=== PATIENT | female | born 1990 | race Caucasian/White ===

== ENCOUNTER 2022-06-24 09:43 | Emergency (ER) | payer OTHER, SELFPAY ==
[2022-06-24 09:47] VITALS: BP 124/73; PULSE 91; RESP 14; TEMP 36.9; O2SAT 100
[2022-06-24 10:02] LABS: Basophils Absolute Auto 0.1 K/mm3 (0.0-0.1); Basophils Percent Auto 0.4 % (0.2-1.2); Eosinophils Absolute Auto 0.1 K/mm3 (0-0.3); Hematocrit 39.6 % (37.0-47.0); Hemoglobin 13.3 g/dL (12.0-15.0); Immature Granulocyte Absolute 0.07 K/mm3 (0.00-0.031); Immature Granulocyte Percent A 0.6 % (0-0.5); Lymphocytes Absolute Auto 2.15 K/mm3 (0.9-3.2); Lymphocytes Percent Auto 17.8 % (18.3-44.2); Mean Corpuscular HGB Conc 33.6 g/dl (32-36); Mean Corpuscular Hemoglobin 29.6 pg (26-34); Monocytes Absolute Auto 0.8 K/mm3 (0.1-0.6); Monocytes Percent Auto 6.5 % (2.6-8.5); Neutrophils Absolute Auto 8.9 K/mm3 (1.3-6.7); Neutrophils Percent Auto 73.7 % (45.5-73.1); Platelet Count Result 355 k/mm3 (150-375); Red Cell Distribution Width 13.3 % (11.5-14.5); White Blood Count 12.1 K/mm3 (4.5-10.0)
[2022-06-24 10:17] LABS: Alanine Aminotransferase 33 U/L (6-35); Albumin Level 4.2 g/dL (3.5-5.1); Alkaline Phosphatase 80 U/L (38-126); Anion Gap 11 mmol/L (8-16); Aspartate Amino Transferase 30 U/L (14-36); Bilirubin,Total 0.3 mg/dL (0.2-1.3); Blood Urea Nitrogen 5 mg/dL (7-17); Calcium 8.9 mg/dL (8.4-10.2); Carbon Dioxide 21 mmol/L (22-30); Chloride 103 mmol/L (98-107); Estimated CRCL calculation 158 ml/min; Estimated Glomerular Filt Rate > 60; Glucose 90 mg/dL (65-110); Lipase 35 U/L (23-300); Potassium 4.1 mmol/L (3.4-5.0); Sodium 135 mmol/L (137-145)
[2022-06-24 10:42] LABS: Appearance Urine Cloudy (Clear); Bilirubin Urine Negative (Negative); Blood Urine Negative (Negative); Color Urine Yellow (Yellow); Glucose Urine UA Negative (Negative); Ketones Urine Negative (Negative); Leukocyte Esterase Ur Negative LEU/UL (Negative); Nitrate Urine Negative (Negative); Protein Urine Negative (Negative); Urobilinogen Urine 0.2 mg/dL (<2.0); pH Urine 6.5 (5.0-9.0)
[2022-06-24 10:54] LABS: Add Urine Microscopic? YES
[2022-06-24 10:55] LABS: Squamous Epithelial Cell Urine Many /hpf (Few)
[2022-06-24 11:22] VITALS: BP 133/78; PULSE 76
[2022-06-24 11:23] VITALS: BP 116/66; PULSE 94
[2022-06-24 11:24] VITALS: BP 135/85; PULSE 93
[2022-06-24] MEDS: LACTATED RINGERS 1,000 ML 1000 ML IV CONT (11:48)
[2022-06-24 12:53] VITALS: BP 105/57; PULSE 68; O2SAT 97
--- NOTE | 2022-06-24 17:19 | ED.NAVMDI ---
HPI - Nausea/Vomiting/Diarrhea General Chief complaint: Nausea/Vomiting/Diarrhea Stated complaint: cough, vomiting blood, 11 weeks Time Seen by Provider: 06/24/22 11:19 History of Present Illness HPI Narrative: Pt is a 31 y/o female, , 11 weeks , presents to ED via POV with NV with , endorsed as morning sickness, with recent hx of two separate episodes of BRB in her vomit, once two days ago with a small clot reported, a second time with bright red streaking. She has no hematochezia or melena. She denies associated abdominal pain, fevers, chills, CP, SOB, diarrhea, constipation or urinary symptoms. She contacted her OBGYN and was instructed to come to the ED for evaluation. She is not dizzy and she denies syncope or vaginal discharge/bleeding. She is scheduled to see her OBGYN next week. She is not currently prescribed anti-emetics for N/V. She is eating and drinking between episodes of vomiting and tolerating well. Related Data Allergies Allergy/AdvReac Type Severity Reaction Status Date / Time No Known Allergies Allergy Unverified 04/01/19 22:51 Review of Systems Review of Systems: refer] to HPI Exam Const: General: healthy appearing, no acute distress and alert Orientation/consciousness: patient oriented x3 Limitations: no limitations HENMT: Head: normal to inspection Face/Nose/Sinus: Normal external nose present and Normal nares present Face and sinus: normal facial exam and sinuses nontender Mouth: Yes Normal oral and palatal mucosa present Teeth and gingiva: dentition normal Throat: posterior oropharynx normal and uvula midline Eyes: Conjunctivae: conjunctivae normal Cornea: corneas normal Pupils: Equal, round and reactive pupils present EOM: EOMs intact bilaterally Neck: Neck: normal visual inspection, no lymphadenopathy and no meningeal signs Chest: Chest palpation & inspection: normal inspection of the chest Resp: Effort & Inspection: normal respiratory effort Cardio: Rate: regular rate Rhythm: regular rhythm GI: GI Palp: Yes Soft to palpation, No Tenderness to palpation present (GI), No Guarding due to palpation present (GI), No Rigid due to palpation, No Hernia present, No Palpable mass present and No Rebound tenderness present Auscultation: normal bowel sounds Back/Spine/Pelvis: Back: no CVA tenderness Skin: General skin exam: normal color Neuro: General: patient oriented x3, moves all extremities, no meningeal signs and no focal motor deficits Cranial nerves: Yes Nystagmus not present Speech: normal speech Extrem: General: normal to inspection, no clubbing, cyanosis or edema and no pedal edema Other: no calf TTP, no palpable cord Psych: Mental Status: mental status grossly normal Course Course Emergency Course: labs, IVF, antiemetics should NV return Vital Signs Vital signs: Vital Signs Temperature 36.9 C 06/24/22 09:47 Pulse Rate 91 06/24/22 09:47 Respiratory Rate 14 06/24/22 09:47 Blood Pressure 124/73 06/24/22 09:47 Pulse Oximetry 100 06/24/22 09:47 Oxygen Delivery Room Air 06/24/22 09:47 Temperature 36.9 C 06/24/22 09:47 Pulse Rate 68 06/24/22 12:53 Respiratory Rate 14 06/24/22 09:47 Blood Pressure 105/57 L 06/24/22 12:53 Pulse Oximetry 97 06/24/22 12:53 Oxygen Delivery Room Air 06/24/22 09:47 MDM - Nausea/Vomiting/Diarrhea MDM Narrative Medical decision making narrative: Pt's nausea has remained resolved. H/H is stable. Suspect claribel de souza tear with vomiting. Will treat with antiemetics, advising patient to take only if necessary until after the 12 week gestational marker. She agrees with POC. She will FU with her OBGYN a planned. Differential Diagnosis Differential diagnosis: Likely other (claribel de souza tear, GERD, gastritis, hyperemesis grav) Lab Data Lab results narrative: marginally increased WBC, no shift, likely secondary to , labs otherwise unremarkable. Result diagrams:
== END 2022-06-24 13:55 | disposition home or self-care (01) ==
PROVIDERS: Emergency Medicine; Emergency Provider Nurse Practitioner Family; PCP Nurse Practitioner Family
DX: O21.9 Vomiting of pregnancy, unspecified (principal); K92.0 Hematemesis; Z3A.11 11 weeks gestation of pregnancy
CPT/HCPCS: 36415; 80053; 81001; 81025; 83690; 85025; 96360; 96361; 99283; J7120

== ENCOUNTER 2022-10-08 06:00 | Observation (INO) | payer MEDICAID, SELFPAY ==
--- NOTE | 2022-10-08 06:00 | OBADM ---
This patient, Clary Price, admitted to the OB room OB Post 115 for observation. Patient/family oriented to hospital policies and general routines including ID bracelet, bed and alarms, visiting hours, pain management, procedures, bathroom and other care routines, personal items, smoking policy, room service/diet, and visiting hours. Patient/Family are encouraged to report perceived risks to care and to ask questions if they do not understand what they are told or what they should do.
--- NOTE | 2022-10-08 06:20 | PC.NURSE ---
pt has complaints of right sided rib pain. Pt states she had COVID 3 weeks ago and has a residual cough. Pt stated the pain has been going on for 1 week now but was woke up in her sleep with a pop in her right rib. Pt states she has been taking cough drops and has had Tylenol this AM but does not know how much.
[2022-10-08 06:28] VITALS: BP 141/76; PULSE 93
[2022-10-08 06:29] VITALS: TEMP 36.5
[2022-10-08 06:51] VITALS: BMI 39.3
[2022-10-08 06:56] LABS: Hematocrit 33.1 % (37.0-47.0); Hemoglobin 10.7 g/dL (12.0-15.0); Mean Corpuscular HGB Conc 32.3 g/dl (32-36); Mean Corpuscular Hemoglobin 28.4 pg (26-34); Mean Corpuscular Volume 87.8 fl (80-100); Mean Platelet Volume 10.2 fl (7.4-10.4); Platelet Count Result 337 k/mm3 (150-375); Red Blood Count 3.77 M/mm3 (4.2-5.4); Red Cell Distribution Width 13.3 % (11.5-14.5)
[2022-10-08] MEDS: CYCLOBENZAPRINE HCL 10 MG TABLET PO (06:57)
[2022-10-08 07:13] LABS: Alanine Aminotransferase 18 U/L (6-35); Albumin Level 3.6 g/dL (3.5-5.1); Alkaline Phosphatase 144 U/L (38-126); Anion Gap 5 mmol/L (8-16); Aspartate Amino Transferase 19 U/L (14-36); Bilirubin,Total 0.3 mg/dL (0.2-1.3); Blood Urea Nitrogen 5 mg/dL (7-17); Calcium 8.3 mg/dL (8.4-10.2); Carbon Dioxide 24 mmol/L (22-30); Chloride 104 mmol/L (98-107); Estimated CRCL calculation 160 ml/min; Estimated Glomerular Filt Rate > 60; Glucose 94 mg/dL (65-110); Potassium 3.8 mmol/L (3.4-5.0); Sodium 133 mmol/L (137-145)
[2022-10-08] MEDS: HYDROcodone/acetaminophen (*CRX) 5-325 MG TABLET 1 TAB PO (08:18)
[2022-10-08 08:53] VITALS: BP 113/62; PULSE 81
--- NOTE | 2022-10-08 09:28 | PC.NURSE ---
pt feeling better and would like to go home and rest. Janna Santiago on the unit and updated. Discharge orders received.
--- NOTE | 2022-10-11 17:01 | P.PNOB_ITS ---
OB - Triage/Final Diagnosis Visit Information Date of evaluation: 10/08/22 Reason for evaluation: other (RUQ pain) Comments/Additional reasons for admission: I have assessed the risk for this patient, Clary Che Allen, and determined that she would benefit from observation care. Evaluation Laboratory results: Laboratory Tests 10/08/22 10/08/22 06:48 06:48 WBC 14.0 H RBC 3.77 L Hgb 10.7 L Hct 33.1 L MCV 87.8 MCH 28.4 MCHC 32.3 RDW 13.3 Plt Count 337 MPV 10.2 Sodium 133 L Potassium 3.8 Chloride 104 Carbon Dioxide 24 Anion Gap 5 L BUN 5 L Creatinine 0.50 L Estim Creat Clear Calc 160 Estimated GFR > 60 Glucose 94 Calcium 8.3 L Total Bilirubin 0.3 AST 19 ALT 18 Alkaline Phosphatase 144 H Total Protein 7.0 Albumin 3.6
== END 2022-10-08 09:48 | disposition home or self-care (01) ==
PROVIDERS: Advanced Practice Midwife; Admitting Provider Obstetrics & Gynecology; PCP Nurse Practitioner Family; Visit Provider Obstetrics & Gynecology
DX: O26.899 Other specified pregnancy related conditions, unspecified trimester (principal); R10.11 Right upper quadrant pain
CPT/HCPCS: 36415; 80053; 85027; A9270; G0378; G0379

== ENCOUNTER 2022-11-29 12:09 | Outpatient (CLI) | payer BC, MEDICAID, SELFPAY ==
[2022-11-29 12:31] VITALS: BP 97/62; PULSE 95
[2022-11-29 12:45] VITALS: BP 101/63; PULSE 89
[2022-11-29 12:59] LABS: Basophils Absolute Auto 0.1 K/mm3 (0.0-0.1); Basophils Percent Auto 0.4 % (0.2-1.2); Eosinophils Absolute Auto 0.4 K/mm3 (0-0.3); Eosinophils Percent Auto 2.1 % (0-4.4); Hematocrit 31.8 % (37.0-47.0); Hemoglobin 10.4 g/dL (12.0-15.0); Immature Granulocyte Absolute 0.11 K/mm3 (0.00-0.031); Immature Granulocyte Percent A 0.7 % (0-0.5); Lymphocytes Absolute Auto 2.23 K/mm3 (0.9-3.2); Lymphocytes Percent Auto 13.7 % (18.3-44.2); Mean Corpuscular HGB Conc 32.7 g/dl (32-36); Mean Corpuscular Hemoglobin 26.7 pg (26-34); Mean Corpuscular Volume 81.5 fl (80-100); Mean Platelet Volume 10.6 fl (7.4-10.4); Monocytes Absolute Auto 1.4 K/mm3 (0.1-0.6); Monocytes Percent Auto 8.6 % (2.6-8.5); Neutrophils Absolute Auto 12.2 K/mm3 (1.3-6.7); Neutrophils Percent Auto 74.5 % (45.5-73.1); Platelet Count Result 338 k/mm3 (150-375); Red Cell Distribution Width 13.7 % (11.5-14.5); White Blood Count 16.3 K/mm3 (4.5-10.0)
[2022-11-29 13:00] VITALS: BP 100/63; PULSE 94
[2022-11-29 13:09] LABS: Alanine Aminotransferase 13 U/L (6-35); Albumin Level 3.4 g/dL (3.5-5.1); Alkaline Phosphatase 210 U/L (38-126); Anion Gap 5 mmol/L (8-16); Appearance Urine Cloudy (Clear); Aspartate Amino Transferase 16 U/L (14-36); Bacteria Urine 3+ /hpf; Bilirubin Urine Negative (Negative); Bilirubin,Total 0.4 mg/dL (0.2-1.3); Blood Urea Nitrogen 4 mg/dL (7-17); Blood Urine Negative (Negative); Calcium 8.8 mg/dL (8.4-10.2); Carbon Dioxide 23 mmol/L (22-30); Chloride 104 mmol/L (98-107); Color Urine Yellow (Yellow); Estimated Glomerular Filt Rate > 60; Glucose 84 mg/dL (65-110); Glucose Urine UA Negative (Negative); Ketones Urine Negative (Negative); Leukocyte Esterase Ur 3+ LEU/UL (NEGATIVE); Nitrate Urine Negative (Negative); Non Pathogenic Casts 0-2; Protein Urine Negative (Negative); RBC Urine 0-2 /hpf (0-2); Sodium 132 mmol/L (137-145); Specific Grav Ur 1.012 (1.001-1.035); Squamous Epithelial Cell Urine Moderate /hpf (Few); Uric Acid 5.7 mg/dL (2.5-7.5); WBC Urine 21-50 /hpf (0-3)
[2022-11-29 13:15] VITALS: BP 98/68; PULSE 85
[2022-11-29 13:21] LABS: Add Urine Microscopic? YES
[2022-11-29] MEDS: ACETAMINOPHEN 500 MG TABLET 1000 MG PO (13:21)
[2022-11-29 14:20] LABS: Total Protein Urine Random 12 mg/dL; Ur Ttl Prot Creatinine Ratio 0.11 mg/mg (0-0.20)
[2022-11-29 14:48] VITALS: BP 97/62; PULSE 95
--- NOTE | 2022-11-29 14:48 | PC.NURSE ---
Malick Ulrich notified of labs and BP's ok to dc home.
== END 2022-11-29 14:48 | disposition home or self-care (01) ==
LOC: ANHOBOP 12:15 → ANHOBPP 12:17
PROVIDERS: Advanced Practice Midwife; PCP Nurse Practitioner Family; Visit Provider Obstetrics & Gynecology
DX: O13.9 Gestational [pregnancy-induced] hypertension without significant proteinuria, unspecified trimester (principal); Z3A.00 Weeks of gestation of pregnancy not specified
CPT/HCPCS: 36415; 59025; 80053; 81001; 82570; 84156; 84550; 85025; 87086; 87088; 99199; A9270

== ENCOUNTER 2022-12-13 11:59 | Emergency (ER) | payer BC, MEDICAID, SELFPAY ==
[2022-12-13 12:00] VITALS: BP 132/77; PULSE 93; RESP 16; TEMP 36.9; O2SAT 97
--- NOTE | 2022-12-13 12:21 | ECG_ITS ---
Measurements Intervals [place] Rate: 100 P: 18 MA: 165 QRS: -27 QRSD: 90 T: 16 QT: 325 QTc: 419 Interpretive Statements SINUS TACHYCARDIA BORDERLINE LEFT AXIS DEVIATION [QRS AXIS < -20] ABNORMAL RHYTHM ECG NO PREVIOUS ECG AVAILABLE FOR COMPARISON Electronically Signed On 12-13-2022 14:43:21 CDT by Chris Billy M.D.
[2022-12-13 12:23] VITALS: PULSE 100
--- NOTE | 2022-12-13 12:34 | ED.GENADULT ---
HPI - General Adult General Chief complaint: Chest Pain Stated complaint: epigastric pain Time Seen by Provider: 12/13/22 12:08 History of Present Illness HPI narrative: 32 yo female at 3 wga presents for reproducible R sided cp x 3 months. She has been told it's musculoskeletal by her ob provider. NO sob, dyspnea. Cholecystectomy prior to . Related Data Allergies Allergy/AdvReac Type Severity Reaction Status Date / Time No Known Allergies Allergy Verified 12/13/22 12:22 Review of Systems Review of Systems: CONSTITUTIONAL: Denies fever, chills, or sweats. EYES: Denies visual changes, redness, or discharge. ENT: Denies rhinorrhea, congestion, sore throat, or otalgia. CARDIOVASCULAR: Denies chest pain, palpitations, or edema. RESPIRATORY: Denies cough or dyspnea. GASTROINTESTINAL: Denies abdominal pain, nausea, vomiting, or diarrhea. GENITOURINARY: Denies dysuria or hematuria. SKIN: Denies rash or itching. MUSCULOSKELETAL: Denies back pain, joint pain, or myalgia. NEUROLOGIC: Denies headache, numbness, or weakness. PSYCHIATRIC: Denies anxiety or depression. Exam Narrative: GENERAL: Well-appearing, well-nourished, and in no acute distress. HEAD: Normocephalic, atraumatic. EYES: PERRLA and EOMI. ENT: Nares clear, no rhinorrhea or epistaxis. Mucous membranes moist. NECK: Supple. CHEST: Clear to auscultation. No respiratory distress. reproducible tenderness in both ant/posterior portions of L rib 6 7 HEART: Regular rate and rhythm. No murmur heard. Normal peripheral pulses. ABDOMEN: Soft, nontender, nondistended, normal active bowel sounds. EXTREMITIES: Normal range of motion. No edema. SKIN: Warm, dry, no rash. NEURO: No focal deficits. Alert and oriented x3. PSYCH: Normal mood and affect. Course Vital Signs Vital signs: Vital Signs Temperature 98.5 F 12/13/22 12:00 Pulse Rate 93 12/13/22 12:00 Respiratory Rate 16 12/13/22 12:00 Blood Pressure 132/77 12/13/22 12:00 Pulse Oximetry 97 12/13/22 12:00 Oxygen Delivery Room Air 12/13/22 12:00 Temperature 98.5 F 12/13/22 12:00 Pulse Rate 83 12/13/22 13:46 Respiratory Rate 21 H 12/13/22 13:46 Blood Pressure 107/77 12/13/22 13:16 Pulse Oximetry 98 12/13/22 13:16 Oxygen Delivery Room Air 12/13/22 12:00 Medical Decision Making MDM Narrative Medical decision making narrative: 32 yo female presents with what seems to be chronic musculoskeletal pain in ribs on R side no gb doubt PE, wells is low risk tylenol and ivf bolus IV fluid bolus has infused patient's heart rate has improved and mucous membranes are moist. I do not suspect PE or cardiac cause of the symptoms and this does present like a musculoskeletal chest pain. Return precautions given. Vital Signs Vital Signs: Vital Signs Temperature 98.5 F 12/13/22 12:00 Pulse Rate 93 12/13/22 12:00 Respiratory Rate 16 12/13/22 12:00 Blood Pressure 132/77 12/13/22 12:00 Pulse Oximetry 97 12/13/22 12:00 Oxygen Delivery Room Air 12/13/22 12:00 Temperature 98.5 F 12/13/22 12:00 Pulse Rate 83 12/13/22 13:46 Respiratory Rate 21 H 12/13/22 13:46 Blood Pressure 107/77 12/13/22 13:16 Pulse Oximetry 98 12/13/22 13:16 Oxygen Delivery Room Air 12/13/22 12:00 Discharge Plan Discharge Clinical Impression: Atypical chest pain, Costalchondritis Patient Disposition: Home, Self-Care Condition: Stable Instructions: Antibiotic Form Additional Instructions: Please avoid any activities which may cause pain in your chest. Please follow-up with a chiropractor who may be able to improve some of the musculoskeletal symptoms that you are experiencing. If your chest pain worsens please return to the ER for further testing and treatment. Prescriptions: No Action cyclobenzaprine 10 mg Tablet 10 mg PO Q8H PRN (Reason: Muscle Spasm) Qty: 10 0RF Follow-up/Referrals: Faye,Claudia Sosa APRN [Advanced Practice Nurse
[2022-12-13] MEDS: LACTATED RINGERS 1,000 ML 999 ML IV CONT (12:43)
[2022-12-13 12:56] VITALS: PULSE 89; RESP 27; O2SAT 97
[2022-12-13 13:16] VITALS: BP 107/77; PULSE 87; RESP 19; O2SAT 98
[2022-12-13 13:46] VITALS: PULSE 83; RESP 21
== END 2022-12-13 14:49 | disposition home or self-care (01) ==
PROVIDERS: Emergency Provider Emergency Medicine; PCP Advanced Practice Midwife
DX: M94.0 Chondrocostal junction syndrome [Tietze] (principal)
CPT/HCPCS: 93005; 96365; 99284; J0131; J7120

== ENCOUNTER 2022-12-29 10:10 | Inpatient (IN) | payer BC, SELFPAY ==
[2022-12-29] VITALS (205 sets, daily range): BP systolic 75–142; BP diastolic 34–107; PULSE 30–255; TEMP 36.1–37.2; O2SAT 81–100; BMI 41.4
[2022-12-29] MEDS: AMPICILLIN 2 GM/NS 100 ML 2 GM/100 ML BAG IVPB (11:09)
[2022-12-29] MEDS: LACTATED RINGERS 1,000 ML 125 ML IV CONT ×2 (11:09→13:16)
[2022-12-29] MEDS: OXYTOCIN 30 UNITS/NS 500 ML 30 UNITS/500 ML BAG 6 UNITS IV CONT (11:14)
[2022-12-29 11:27] LABS: Basophils Absolute Auto 0.1 K/mm3 (0.0-0.1); Basophils Percent Auto 0.5 % (0.2-1.2); Eosinophils Absolute Auto 0.3 K/mm3 (0-0.3); Eosinophils Percent Auto 3.3 % (0-4.4); Hematocrit 33.5 % (37.0-47.0); Hemoglobin 10.7 g/dL (12.0-15.0); Immature Granulocyte Absolute 0.04 K/mm3 (0.00-0.031); Immature Granulocyte Percent A 0.4 % (0-0.5); Lymphocytes Absolute Auto 2.04 K/mm3 (0.9-3.2); Lymphocytes Percent Auto 21.6 % (18.3-44.2); Mean Corpuscular HGB Conc 31.9 g/dl (32-36); Mean Corpuscular Hemoglobin 26.1 pg (26-34); Mean Corpuscular Volume 81.7 fl (80-100); Mean Platelet Volume 11.3 fl (7.4-10.4); Monocytes Absolute Auto 0.7 K/mm3 (0.1-0.6); Monocytes Percent Auto 7.2 % (2.6-8.5); Neutrophils Absolute Auto 6.3 K/mm3 (1.3-6.7); Platelet Count Result 292 k/mm3 (150-375); Red Cell Distribution Width 14.4 % (11.5-14.5); White Blood Count 9.4 K/mm3 (4.5-10.0)
[2022-12-29] MEDS: fentaNYL CITRATE INJ (*CRX) 100 MCG/2 ML VIAL 50 MCG IV PUSH (12:26)
[2022-12-29 12:41] LABS: Rapid Plasma Reagin Non-Reactive (NonReactive)
--- NOTE | 2022-12-29 13:20 | LDADM ---
This patient, Clary Price, was admitted to Labor/Delivery/Recovery 104 on 12/29/22 at 10:10. Plans for labor, pain management and were discussed with patient. Patient/family oriented to hospital policies and general routines including ID bracelet, bed and alarms, visiting hours, pain management, procedures, bathroom and other care routines, personal items, smoking policy, room service/diet and guest tray routines, infant security routines, and visiting hours. Patient/Family are encouraged to report perceived risks to care and to ask questions if they do not understand what they are told or what they should do. See OBIX for further documentation.
--- NOTE | 2022-12-29 14:05 | P.PNAN_ITS ---
Anes - Eval Pre Procedure Procedure: Labor Epidural Date/Time: 12/29/22 14:05 Surgeon: Jonathan Preop Diagnosis: Pain during labor Pre Op Diagnosis: leaking Patient Data Age: 32 Gender: F Height: 1.65 m Weight: 113 kg Last Vital Signs Temp 36.8 C 12/29/22 11:30 Pulse 67 12/29/22 14:03 BP 110/58 L 12/29/22 14:03 Pulse Ox 96 12/29/22 14:02 Allergies Allergy/AdvReac Type Severity Reaction Status Date / Time No Known Allergies Allergy Verified 12/13/22 12:22 Laboratory Tests 12/29/22 11:02 WBC 9.4 K/mm3 (4.5-10.0) RBC 4.10 L M/mm3 (4.2-5.4) Hgb 10.7 L g/dL (12.0-15.0) Hct 33.5 L % (37.0-47.0) MCV 81.7 fl (80-100) MCH 26.1 pg (26-34) MCHC 31.9 L g/dl (32-36) RDW 14.4 % (11.5-14.5) Plt Count 292 k/mm3 (150-375) MPV 11.3 H fl (7.4-10.4) Immature Gran % (Auto) 0.4 % (0-0.5) Neut % (Auto) 67.0 % (45.5-73.1) Lymph % (Auto) 21.6 % (18.3-44.2) [place] % (Auto) 7.2 % (2.6-8.5) Eos % (Auto) 3.3 % (0-4.4) Baso % (Auto) 0.5 % (0.2-1.2) Lymph # (Auto) 2.04 K/mm3 (0.9-3.2) [place] # (Auto) 0.7 H K/mm3 (0.1-0.6) Eos # (Auto) 0.3 K/mm3 (0-0.3) Baso # (Auto) 0.1 K/mm3 (0.0-0.1) Abs Immat Gran (auto) 0.04 H K/mm3 (0.00-0.031) Absolute Neuts (auto) 6.3 K/mm3 (1.3-6.7) Absolute Nucleated RBC 0.0 K/mm3 (0.0-0.012) Nucleated RBC % 0.0 % (0.0-0.2) RPR Non-reactive (NonReactive) Blood Type O Positive Antibody Screen Negative Patient hx anesthesia problems: none Family hx anesthesia problems: none Results Review: All pre-operative results and documents have been reviewed as part of the pre-op erative evaluation. [facility] Social History Social History Smoking packs per day: 1 Smoking cigarettes per day: 20.0 Years smoked: 15 Smoking pack-years: 15.00 Smoking status: Current every day smoker Tobacco type: cigarettes Second hand tobacco smoke exposure: Yes Substance use: never Lack of Transportation: No Lack of Food: Never True Current Housing: I Have Housing Concerned About Future Housing: No Difficulty Paying Gas/Electric Bills: No Difficulty Paying for Meds: No Currently Unemployed: No Education: High School Diploma/GED Difficulty w/ Childcare or Family Care: No Spiritual care concerns: No Exam Day of Procedure 12/29/22 14:05 Patient weight: obese Neurological: alert and oriented
[2022-12-29] MEDS: AMPICILLIN 1 GM/NS 50 ML 1 GM/50 ML BAG IVPB ×2 (15:07→19:00)
[2022-12-29] MEDS: ONDANSETRON INJ 4 MG/2 ML VIAL IV PUSH ×3 (19:20→23:28)
[2022-12-29] MEDS: miSOPROStol 200 MCG TABLET 1000 MCG RECTAL (22:38)
[2022-12-29] MEDS: METHYLERGONOVINE MALEATE 0.2 MG/ML VIAL IM (22:40)
[2022-12-29] MEDS: CARBOPROST TROMETHAMINE 250 MCG/ML AMPUL IM (22:43)
[2022-12-29] MEDS: OXYTOCIN 30 UNITS/NS 500 ML 30 UNITS/500 ML BAG 125 UNITS IV CONT (22:45)
[2022-12-29] MEDS: TRANEXAMIC ACID 1,000 MG in SODIUM CHLORIDE 0.9% IV 50 ML 360 MG IVPB (22:49)
[2022-12-29 23:09] LABS: Basophils Percent Auto 0.3 % (0.2-1.2); Eosinophils Absolute Auto 0.1 K/mm3 (0-0.3); Eosinophils Percent Auto 0.7 % (0-4.4); Hematocrit 22.7 % (37.0-47.0); Immature Granulocyte Absolute 0.07 K/mm3 (0.00-0.031); Immature Granulocyte Percent A 0.5 % (0-0.5); Lymphocytes Absolute Auto 1.78 K/mm3 (0.9-3.2); Lymphocytes Percent Auto 11.7 % (18.3-44.2); Mean Corpuscular HGB Conc 30.8 g/dl (32-36); Mean Corpuscular Hemoglobin 26.1 pg (26-34); Mean Corpuscular Volume 84.7 fl (80-100); Mean Platelet Volume 11.2 fl (7.4-10.4); Monocytes Absolute Auto 1.2 K/mm3 (0.1-0.6); Monocytes Percent Auto 8.1 % (2.6-8.5); Neutrophils Percent Auto 78.7 % (45.5-73.1); Platelet Count Result 177 k/mm3 (150-375); Red Blood Count 2.68 M/mm3 (4.2-5.4); Red Cell Distribution Width 14.3 % (11.5-14.5); White Blood Count 15.3 K/mm3 (4.5-10.0)
--- NOTE | 2022-12-29 23:12 | WPDOBADMIT ---
Obstetrics - Admit Note Admission Note: record reviewed. No pertinent additions to the history and/or any subsequent changes in the physical findings that are not consistent with the expected course of the were found.pt admitted after SROM at home. plan to augment with pitocin Additions to the history and/or subsequent changes in the physical findings follow. None.
--- NOTE | 2022-12-29 23:13 | PM.OBPRVD ---
OB - Delivery Note Procedure Delivery date: 12/29/22 Procedure: Induction method: None Delivery augmentation: Pitocin Delivery monitor: External FHT and External Uterine Route of delivery: Episiotomy description: None Laceration Description: Periurethral (right, repaired and vaginal packing placed) and Vaginal Delivery repair: vicryl Specimen: Yes Quantitative Blood Loss (ml): 1,438 Anesthesia type: Epidural Disposition: Floor Baby Date of : 12/29/22 Time of : 22:24 Weeks of gestation at delivery: 37 gender: Male Weight (pounds): 7 Weight (ounces): 6 presentation: vertex position: Left Occiput Anterior Placenta delivery description: Spontaneous and Normal Configuration Cord Vessel Description: 3 Vessels, Nuchal Cord, Loose (x1), Clamped/Cut, Delayed Cord Clamping and Around Body (x2) score one minute: 8 score five minutes: 9 Narrative: after delivery of the placenta, periurethral laceration repaired and oozing from around stitches, fundus boggy manual removal of small piece of amniotic membrane from on cervix. fundus remained boggy, Team OB called. Then rectal cytotec, methergine, hemabate, IV pitocin.TXA ordered, fundal and internal massage continued throughout. Bakri placed under US guidance with 250 cc, bleeding now minimal, vaginal packing placed, pt VS stable, awaiting labs. notified
[2022-12-29 23:21] LABS: INR 1.1; Prothrombin Time 14.7 Seconds (11.1-14.7)
[2022-12-29 23:22] LABS: Fibrinogen 304 mg/dl (215-510); Partial Thromboplastin Time 29.7 SECONDS (22.3-36.8)
[2022-12-30] VITALS (23 sets, daily range): BP systolic 95–142; BP diastolic 46–76; PULSE 42–102; RESP 15–22; TEMP 36.5–37.8; O2SAT 87–100
[2022-12-30] MEDS: ceFAZolin 2 GM/D5W 50 ML 2 GM/50 ML BAG IVPB ×2 (00:42→10:57)
[2022-12-30] MEDS: ACETAMINOPHEN 325 MG TABLET 650 MG PO ×2 (01:17→19:32)
[2022-12-30] MEDS: LACTATED RINGERS 1,000 ML 125 ML IV CONT (01:35)
--- NOTE | 2022-12-30 03:24 | PC.NURSE ---
Patient transferred to post room #285 per wheelchair from labor and delivery. Support person present. Oriented to unit, room, information board, rooming in, admission packet and security measures. Patient verbalizes understanding.
[2022-12-30] MEDS: IBUPROFEN 600 MG TABLET PO ×2 (04:08→20:37)
[2022-12-30] MEDS: SODIUM CHLORIDE 0.9% IV 1,000 ML 30 ML IV CONT (04:09)
[2022-12-30] MEDS: HYDROcodone/acetaminophen (*CRX) 5-325 MG TABLET 1 TAB PO ×2 (04:45→07:42)
[2022-12-30] MEDS: MULTIVIT/MIN/PREN/FOL AC/IRON TABLET 1 TAB PO (07:41)
[2022-12-30] MEDS: POLYSACCHARIDE IRON COMPLEX 150 MG CAPSULE PO (07:41)
[2022-12-30] MEDS: DOCUSATE SODIUM 100 MG CAPSULE PO (07:41)
--- NOTE | 2022-12-30 08:22 | PM.OBPNVD ---
OB - PN: Subj Subjective Date/time seen: 12/30/22 08:22 s/p vaginal delivery day, bottle feeding,no complaints, currently getting blood transfusion OB - PN: Obj Data Labs 12/29/22 22:59 Labs: Laboratory Results - last 24 hr 12/29/22 12/29/22 11:02 22:59 WBC 9.4 15.3 H RBC 4.10 L 2.68 L Hgb 10.7 L 7.0 L D Hct 33.5 L 22.7 L MCV 81.7 84.7 MCH 26.1 26.1 MCHC 31.9 L 30.8 L RDW 14.4 14.3 Plt Count 292 177 MPV 11.3 H 11.2 H Immature Gran % (Auto) 0.4 0.5 Neut % (Auto) 67.0 78.7 H Lymph % (Auto) 21.6 11.7 L [place] % (Auto) 7.2 8.1 Eos % (Auto) 3.3 0.7 Baso % (Auto) 0.5 0.3 Lymph # (Auto) 2.04 1.78 [place] # (Auto) 0.7 H 1.2 H Eos # (Auto) 0.3 0.1 Baso # (Auto) 0.1 0.0 Abs Immat Gran (auto) 0.04 H 0.07 H Absolute Neuts (auto) 6.3 12.0 H Absolute Nucleated RBC 0.0 0.0 Nucleated RBC % 0.0 0.0 PT 14.7 INR 1.1 APTT 29.7 Fibrinogen 304 D-Dimer 1.90 H RPR Non-reactive Blood Type O Positive Antibody Screen Negative Crossmatch See Detail OB - PN A/P Plan day: 1 Comments: cbc 6 hours after transfusion Time Spent With Patient Time: Total time spent is greater than 50% in coordination of care (as documented) at patient's floor/unit and/or counseling patient: Review of Systems Review of Systems: All systems reviewed & are unremarkable except as noted in HPI and below Exam Narrative: removed vaginal packing, bakri balloon deflated and 250cc removed, balloon removed w/o difficulty, early ballooon deflated and removed. VSS stable Const: General: cooperative, healthy appearing and comfortable Resp: Effort & Inspection: normal respiratory effort
--- NOTE | 2022-12-30 09:57 | WPDANLDPN2 ---
Anes-Prog Note L&D Date/Time: 12/30/22 09:57 Comfortable throughout: labor and delivery Neuraxial method: epidural Epidural/Spinal procedure site: clean & non-tender Neuro status: Neuro function grossly intact. Cardiovascular status: normal Respiratory status: normal Airway patency: baseline Mental status: baseline Post-Op hydration status: normal Vital Signs: Last Vital Signs Temp 37.1 C 12/30/22 08:05 Pulse 69 12/30/22 08:05 Resp 18 12/30/22 08:05 BP 95/46 L 12/30/22 08:05 Pulse Ox 96 12/30/22 08:05 O2 Del Method Room Air 12/30/22 03:30 Pain score (VAS): 0 I/O: Intake & Output 12/29/22 12/30/22 12/30/22 23:59 07:59 15:59 Intake Total 1050 375 Output Total 9055 848 Balance 2450 -7254 -704 Post-procedural complaints: none Patient feedback: Patient satisfied with anesthetic care.
[2022-12-30 13:16] LABS: Hematocrit 32.2 % (37.0-47.0); Hemoglobin 10.6 g/dL (12.0-15.0)
--- NOTE | 2022-12-30 14:35 | PC.NURSE ---
[id number] Introductions were made, then consulted with patient to assess needs related to . Mother led the conversation with her?plans to feed?her infant, the?experience so far as mother and has been for a time related to mother receiving care for PPH. Mother states infant has received three bottles, will not latch, and she has not initiated pumping related to her being very tired. Resources provided for inpatient and outpatient services with the feeding sheet, mom/baby guide and name written on the white board. Mother voiced understanding of information and has her EGA37 week on her chest with the gown between her and the infants body. Mother request assistance at this time helping wake infant and to see if will breastfeed. Mother works well with her with encouragement and education. Encouraged understanding of the benefits of skin to skin (demonstrating unwrapping and placing upright on her chest), stimulating with massage touch, changing positions to encourage wakefulness, how to watch for early feeding cues, responsive feeding, feeding on demand (aiming for 8-12 times in 24 hours, about every 2-3 hours), milk production, building/maintaining a milk supply, duration of feeding, signs of adequate intake/output and how to record on the feeding sheet. Reviewed positioning and ear, shoulder, hip alignment, supporting the breast to facilitate a deep latch, asymmetrical latch (off-center), leading with the chin with a big, open, wide gape and body close to mother. Mother has a difficult time supporting her breast with the opposite arm with IV's in both arms and struggling with reaching across her body to adequately hold her breast to facilitate latching. Infant wakes, shows some feeding cues, then once moved to the breast opens with a shallow gape and doesn't latch holding the nipple at the lips. Reviewed risks and benefits of bottle formula feeding, 37 EGA infant behaviors, and how to stimulate infant and assist. does not demonstrate effective efforts. Resources used to facilitate learning were used with the tool, mom and baby guide. Reviewed the possible risks of the > 1400 blood loss, possible delay in milk production, the plan moving forward with and pumping consistently to activate the milk production. Mother voiced understanding of skin to skin, stimulating with massage touch, responsive feedings, hand expressed colostrum, talking to to encourage if it has been 2 -2.5 hours since the start of the last , to call if does not latch, or if there is discomfort with . Mother asks for a formula bottle to feed her . Resources provided for inpatient/outpatient with business card, feeding sheet and the mom/baby guide. Mother voiced understanding of information and will call if there is a request for assistance. Reported to the primary RN.
[2022-12-31] MEDS: IBUPROFEN 600 MG TABLET PO ×2 (04:50→11:30)
[2022-12-31 08:50] VITALS: BP 112/73; PULSE 50; RESP 16; TEMP 36.9; O2SAT 100
[2022-12-31] MEDS: MULTIVIT/MIN/PREN/FOL AC/IRON TABLET 1 TAB PO (08:51)
--- NOTE | 2022-12-31 08:53 | PM.OBPNVD ---
OB - PN: Subj Subjective Date/time seen: 12/31/22 08:53 s/p vaginal delivery day 2,denies complaints OB - PN: Obj Data Labs 12/30/22 13:04 Labs: Laboratory Results - last 24 hr 12/30/22 13:04 Hgb 10.6 L D Hct 32.2 L OB - PN A/P Plan day: 2 Plan: routine care and discharge home Time Spent With Patient Time: Total time spent is greater than 50% in coordination of care (as documented) at patient's floor/unit and/or counseling patient: Review of Systems Review of Systems: All systems reviewed & are unremarkable except as noted in HPI and below Exam Const: General: cooperative, healthy appearing and comfortable Resp: Effort & Inspection: normal respiratory effort GI: Inspection: normal to inspection Skin: General skin exam: normal color Neuro: General: patient oriented x3 Psych: Appearance: grossly normal
[2022-12-31] MEDS: ACETAMINOPHEN 325 MG TABLET 650 MG PO (08:55)
--- NOTE | 2022-12-31 08:55 | PM.OBDSVD ---
DS: Admitting Diagnosis Discharge Date 12/31/22 Admitting Diagnosis SROM DS: Discharge Diagnosis Discharge Diagnosis (1) Vaginal delivery: Code(s): O80 - Encounter for full-term uncomplicated delivery Status: Acute OB - DS: Summary OB Procedures : None OB Procedures Intrapartum: Spontaneous Vag Delivery OB Procedures: : Transfusion Time Spent with Patient Time attestation: Total time spent providing and/or coordinating discharge services: DS: Data Data Completed and Pending Pending studies at discharge: Pending at discharge 12/29/22 22:30 Surgical [PTH] Routine Labs on day of discharge: Labs from last 24 hours 12/30/22 13:04 Hgb 10.6 L D Hct 32.2 L Discharge Plan Discharge Attending physician on discharge: Ulices Castillo Discharging Clinician: Shalini Santiago Patient Disposition: Home, Self-Care Activity: pelvic rest Diet: regular Patient Instructions: Antibiotic Form Stand Alone Forms: General Discharge Information Follow-up/Referrals: Shalini Santiago, CNM [Certified Nurse Payroll And Benefits Specialist] - 4 Weeks Discharge Medications: New ibuprofen 600 mg Tablet 600 mg PO Q6H PRN (Reason: Cramping) Qty: 30 0RF Date of admission: 12/29/22 10:10 Primary Care Provider: Amna Ulrich Admitting Provider: Ulices Castillo Attending physician on admission: Ulices Castillo Condition: Stable
--- NOTE | 2022-12-31 10:00 | PC.NURSE ---
Patient viewed the discharge video Mother & Baby Care, The First Two Weeks . Patient was given the opportunity and encouraged to ask questions. Patient verbalized understanding of information shared and has been given the mother/baby guide for home reference.
[2023-01-02 11:23] VITALS: BP 145/72; PULSE 48; RESP 16; TEMP 36.9; O2SAT 100
== END 2022-12-31 12:04 | disposition home or self-care (01) | DRG 768 ==
LOC: ANHLDR 10:24 → ANHOB2 12-30 04:18
PROVIDERS: Advanced Practice Midwife; Admitting Provider Obstetrics & Gynecology; PCP Advanced Practice Midwife; Visit Provider Obstetrics & Gynecology
DX: O99.824 Streptococcus B carrier state complicating childbirth (principal); Z37.0 Single live birth; O71.82 Other specified trauma to perineum and vulva; O69.81X0 Labor and delivery complicated by cord around neck, without compression, not applicable or unspecified; Z3A.37 37 weeks gestation of pregnancy; O72.1 Other immediate postpartum hemorrhage
CPT/HCPCS: 36415; 36430; 85014; 85018; 85025; 85380; 85384; 85610; 85730; 86592; 86850; 86900; 86901; 86923; 88307; 90471; 90744; A9270; G0010; J0290; J0690; J2210; J2405; J2590; J2795; J3010; J3430; J7030; J7120; P9016

== ENCOUNTER 2024-10-11 11:40 | Emergency (ER) | payer BC, SELFPAY ==
--- NOTE | ~2024-10-11 | CT_ITS ---
EXAMINATION: CT soft tissue neck w con DATE: 10/11/2024 14:57 INDICATION: Bilateral jaw swelling. TECHNIQUE: Computed tomography (CT) of the neck was performed with 75 mL Omnipaque-350 intravenous co ntrast. Automated exposure control and iterative reconstruction technique were employed. The dose-sakshi gth product was 582.37 mGy-cm. COMPARISON: None FINDINGS: The adenoids are enlarged. There is a 13 mm cyst in the adenoids. The palatine tonsils are enlarged. There is a soft tissue swelling in the lower face bilaterally. There is mucosal thickening in the paranasal sinuses. There is mild bilateral high internal jugular chain lymphadenopathy. For ex ample, a left high internal jugular node measures 18 x 11 mm. The mastoid air cells are normal. There is kyphosis of cervical spine. IMPRESSION: 1. Bilateral lower face soft tissue swelling. 2. Enlarged adenoids and palatine tonsils. A 13 mm cyst in the adenoids may be a mucous retention cys t or abscess. 3. Bilateral cervical lymphadenopathy, likely reactive. Reviewed, dictated and finalized at location A. ET PLACER IMPRESSION: 1. Bilateral lower face soft tissue swelling. 2. Enlarged adenoids and palatine tonsils. A 13 mm cyst in the adenoids may be a mucous retention cyst or abscess. 3. Bilateral cervical lymphadenopathy, likely reactive.
--- OUTSIDE RECORDS SUMMARY | 2024-10-11 11:59 | XMS_ITS | Clinical Summary ---
Author Organization [facility] [employer] Address [address] [place] [address] Care Team Providers Care Therapist Respiratory Name Role Phone Unavailable Primary Care Provider Unavailabl e Source Comments [facility] [employer],non-owned Affiliates and Associated Physician Practices is amultiple site organization consisting of ambulatory clinics and hospital sitesin [place], [place], [place] and [place]. This disclosure is being madepursuant to the Care Everywhere program and may not contain all information available regarding this patient. Last updated 18.[employer] Allergies No known active allergies Medications * Be aware that medications may not be up to date on this document. Alwaysverify current medications with the patient. Medication Sig Dispensed Refills Start Date End Date Status albuterol HFA (PROVENTIL;VENTOLIN;TX OAIR) 108 (90 Base) MCG/ACT inhalerIndications:Acu te bronchitis, unspecified organism Inhale 2 puffs by mouth every 6 hours as needed 1 Inhaler 05/16/2019 Active Active Problems No known active problems Social History Tobacco Use Types Packs/Day Years Used Date Smoking Tobacco: Every Day Smokeless Tobacco: Never PHQ-2 Answer Date Recorded PHQ2 TOTAL SCORE 0 02/11/2021 Sex and Gender Information Value Date Recorded Sex Assigned at Not on file Gender Identity Not on file Sexual Orientation Not on file Last Filed Vital Signs Vital Sign Reading Time Taken Comments Blood Pressure 114/70 02/11/2021 5:34 PM CDT Pulse 70 02/11/2021 5:34 PM CDT Temperature 36.7 C (98 F) 02/11/2021 5:34 PM CDT Respiratory Rate 20 02/11/2021 5:34 PM CDT Oxygen Saturation 97% 05/16/2019 12:11 PM CDT Inhaled Oxygen Concentration - - Weight 92.5 kg (204 lb) 05/16/2019 12:11 PM CDT Height 154.9 cm (5' 1 ) 05/16/2019 12:11 PM CDT Body Mass Index 38.55 05/16/2019 12:11 PM CDT Plan of Treatment Health Maintenance Due Date Last Done Comments PAP SMEAR 1990 HIV SCREENING 2006 HEPATITIS C SCREENING 08/07/2009 DTAP/TDAP/TD VACCINES (1 - Tdap) 2010 HEPATITIS B VACCINE (1 of 3 - 19+ 3-dose series) 2010 PNEUMOCOCCAL VACCINE (1 of 2 - PCV) 2010 COVID-19 VACCINE ( - 2023-2 5 season) 2024 INFLUENZA VACCINE (#1) 2024 DEPRESSION SCREENING 08/21/2024 ZOSTER VACCINE (1 of 2) 2041 HIB VACCINE Aged Out No longer eligi ble based on patient's age to complete this topic HPV VACCINE Aged Out No longer eligi ble based on patient's age to complete this topic MENINGOCOCCAL (Group B) VACCINE Aged Out No longer eligible based on patient's age to complete this topic MENINGOCOCCAL VACCINE Aged Out No nuno jon eligible based on patient's age to complete this topic
--- OUTSIDE RECORDS SUMMARY | 2024-10-11 11:59 | XMS_ITS | Data Portability ---
[facility] [address] [place] [address] Assessment No assessment recorded. Plan of Treatment Reminders Order Date Submit Date Provider Last Modified By Organization Details Last Modified Time Details Appointments None record ed. Lab None record ed. Referral None record ed. Procedures None record ed. Surgeries None record ed. Imaging None record ed. Medication Orders None record ed. Patient TargetsNo targets recorded. Patient Instructions Encounter Date Encounter Id Patient Instructions Last Modified By Organization Details Last Modified Time 08/27/2019 [id number] learning about mood disorders Not available 08/27/2019 15:13:51 Reason for Referral None Reported. Problems Name Problem SNOMED Code Status Onset Date Resolution Date Notes Provider Name and Address Organization Details Recorded Time Mood disorder 68996155 Active 020 Nani Dozier MD Attn: Accounting ,[address] [facility], [place], [address] , [facility] 0 15:12:28 Problem Notes None recorded. Medical Equipment None Reported. Allergies No known drug allergies Medications Not known to be on any medication Vitals Date Recorded Body weight Body mass index (BMI) Body height Body temperature Oxygen saturation Oxygen saturation in Arterial blood by Pulse oximetry Heart rate Systolic blood pressure Diastolic blood pressure Provider Name and Address Organization Details Last Updated DateTime 0 22133.4 4 g 34.1 kg/m2 165.1 cm 98 [degF] 98 % 98 % 88 /min 118 mm[Hg] 78 mm[Hg] Yakelin Santos MA [facility] 0 14:16:37 Social History None recorded. Functional Status None recorded. Mental Status None recorded. Family History Nothing Reported. Medical History Condition Response Kidney or Bladder Problems Y Gynecological HistoryNo gynecological history recorded. Obstetrics History GPAL:G 0 P 0 0 0 0 Past Encounters Encounter ID Performer Location Encounter Start Date Encounter Closed Date Diagnosis/Indication Diagnosis SNOMED-CT Code Diagnosis ICD10 Code Diagnosis Note [id number] MD Mohan Prater (Adult Med) [address] [place] [address] 08/27/2019 13:45:36 08/27/2019 15:14:37 Mood disorder 97526174 F39 Offered to refer pt to . She wants to wait. Health Concerns Section Related Observation LastModified by Organization Detai ls LastModified Time None Recorded Concern Status LastModified by Organization Details LastModified Time None Recorded Advance Directives Directive None Recorded Payers Encounter Date Sequence Insurance Name Policy Number Policy Ricketts Covered Member ID Ricketts Member ID Guarantor Name 08/27/2019 1 [facility] [id number] Clary Yane Price [id number] Clary Price Notes Date Note Type Note Provider Name and Address Organization Details Recorded Time 08/27/2019 text/html Has trouble associating with others. She feels overwhelmed and anxious. Sais she was uncomfortable talking to me Nani Dozier MD Attn: Accounting,[address] [facility], [place], [address], [facility] 08/27/2019 15:14:27 OBGyn Episode No OBEpisode recorded.
--- OUTSIDE RECORDS SUMMARY | 2024-10-11 11:59 | XMS_ITS | Referral Summary ---
Author Organization [facility] [employer] Address [address] [place] [address] Care Team Providers Care Solutions Architect Consultant Name Role Phone Unavailable Primary Care Provider Unavailabl e Source Comments [facility] [employer],non-owned Affiliates and Associated Physician Practices is amultiple site organization consisting of ambulatory clinics and hospital sitesin [place], [place], [place] and [place]. This disclosure is being madepursuant to the Care Everywhere program and may not contain all information available regarding this patient. Last updated 18.[employer] Allergies No known active allergies Medications * Be aware that medications may not be up to date on this document. Alwaysverify current medications with the patient. Medication Sig Dispensed Refills Start Date End Date Status albuterol HFA (PROVENTIL;VENTOLIN;FL OAIR) 108 (90 Base) MCG/ACT inhalerIndications:Acu te [...] 05/16/2019 12:11 PM CDT Plan of Treatment Not on file
--- OUTSIDE RECORDS SUMMARY | 2024-10-11 11:59 | XMS_ITS | Patient Health Summary ---
Author Organization [facility] [employer] Address [address] [place] [address] Care Team Providers Care Pourer Crane Ladle Name Role Phone Unavailable Primary Care Provider Unavailabl e Note from [facility],non-owned Affiliates and Associated Physician Practices is amultiple site organization consisting of ambulatory clinics and hospital sitesin [place], [place], [place] and [place]. This disclosure is being madepursuant to the Care Everywhere program and may not contain all information available regarding this patient. Last updated 18.[facility] Allergies No known active allergies Medications * Be aware that medications may not be up to date on this document. Alwaysverify current medications with the patient. * albuterol HFA (PROVENTIL;VENTOLIN;PROAIR) 108 (90 Base) MCG/ACT inhaler (Started 05/16/2019) Inhale 2 puffs by mouth every 6 hours as needed Active Problems No known active problems Social [...] Mass Index 38.55 05/16/2019 12:11 PM CDT Procedures * SONOGRAM - COMPLETE(Performed 11/29/2022) Performed for Encounter for ultrasound to assess growth (HCC), 33 weeks gestation of (HCC), Encounter for follow-up ultrasound of anatomy (HCC) * SONOGRAM - COMPLETE(Performed 11/01/2022) Performed for Encounter for anatomic survey (HCC), abnormality during , antepartum, single or unspecified fetus (HCC) Results * SONOGRAM - COMPLETE (11/29/2022 3:26 PM CDT) Only the most recent of2 resultswithin the time period is included. Anatomical Region Laterality Modality Other 11/29/2022 3:26 PM CDT Narrative 11/29/2022 4:32 PM CDT [facility] PHONE: FAX: Pat. Name: JIA PRICE ANIA Johnston. No: [id number] Study Date: 11/29/2022 3:26pm , Age: 13 1990, 32 Pregnancies: 1 Height: 64 in Weight: 234 lb LMP: Unknown GA by Base: 33w3d GABRIEL: 01/14/2023 GA by US: 34w2d GABRIEL: 01/08/2023 GA Selected: 33w3d (From Known E) GABRIEL: 01/14/2023 Referring MD: Med Castillo MD Gaming Dealer: Sheila Silvestre RDMS CPT4: 59092 BMI: 40.16 Hist/Ind: Suspected Right Clubfoot on Outside Scan at Was Suboptimal for MFM on 11/01 Complete Anatomy Class III obesity MEASUREMENTS & AGE GROWTH EVALUATION Measurement GA Range Srce %for GA Ratios ----- ---- ------- BPD 8.6 cm 34w4d (04b3i-82c7l) Hadl BPD 75% FL/BPD 0.77 (0.71 - 0.87) HC 31.3 cm 35w1d (44l1c-68q7b) Hadl HC 54% FL/AC 0.21 (0.20 - 0.24) AC 31.9 cm 35w6d (03j8n-96n3m) Hadl AC 96% HC/AC 0.98 (0.95 - 1.13) FL 6.6 cm 33w6d (60c7g-05w0b) Hadl FL 51% CI 0.76 (0.70 - 0.86) GA for sonogram 34w2d (31g2z-37p2m) Weight Estimate: based on (BPD,HC,AC,FL) Hadlock Weight: 2586 gm (2208-2964gm) Had : 5lbs, 11oz Normal: 2254 gm (1691-2818gm) Had Wt% 87% for 33w3d Heart Rate: 125 bpm Amniotic Fluid Index: 21.2cm (08.2-24.6) Q1: 7.9cm Q2: 3.5cm Q3: 5.8cm Q4: 4.0cm EVAL, PLACENTA Presentation: cephalic Placenta: anterior Heart Rate: 125 bpm Amniotic Fluid Volume: normal Anatomy!Normal!Abnormal!Suboptimal!Prev. Seen!Comments Cranium ! x ! ! ! x ! Mdl (CSP/Thal! x ! ! ! ! Ventricles ! x ! ! ! ! Choroid Plexu! x ! ! ! ! Cerebellum ! ! ! ! x ! Cisterna M. ! ! ! ! x ! Orbits ! ! ! ! x ! Profile ! ! ! ! x ! Nasal Bone ! ! ! ! x ! Lip ! ! ! ! x ! Spine ! ! ! ! x ! Lungs ! ! ! ! x ! 4 Chamber Hea! x ! ! ! x ! LVOT ! ! ! ! x ! RVOT ! ! ! ! x ! 3 Vessel View! ! ! ! x ! 3 Vessel Trac! x ! ! ! ! Cross-over ! ! ! ! x ! Ductal Arch ! ! ! ! x ! Aortic Arch ! ! ! ! x ! Caval View ! ! ! ! x ! Situs ! ! ! ! x ! Diaphragm ! ! ! ! x ! Stomach ! ! ! ! x ! Bowel ! x ! ! ! x ! Kidneys ! x ! ! ! x ! Bladder ! x ! ! ! x ! 3 Vessel Cord! ! ! ! x ! Cord In! ! ! x ! ! Upper Extremi! ! ! ! x ! Hands ! ! ! ! x ! Lower Extremi! ! x ! ! !suboptimal right, previously seen left Feet ! ! x ! ! !suboptimal right, left previously seen External Luh! ! ! ! x ! Placental Cor! ! ! ! x ! CLINICAL SUMMARY A single fetus is seen in cephalic presentation. The measurements today are consistent with appropriate growth. The GABRIEL is based on a prior ultrasound examination (confirmed). The amniotic fluid volume is within normal limits. IMPRESSION: Single, live, intrauterine at 33w3d size is within normal limits Amniotic fluid volume: within normal limits No major malformations were seen within the limitations of ultrasound. Right clubfoot could not be ruled out. Suboptimal due to gestational age RECOMMEND: Follow up as clinically indicated The possible right clubfoot will be examined after and determine if present and what follow up Thank you for allowing us the opportunity to care for your patient Isael Soto MD <Electronic Signature> 11/29/2022 04:32pm R Jose Castillo MD [facility] ORDERABLES
[2024-10-11 12:06] VITALS: BP 140/83; PULSE 98; RESP 16; TEMP 36.6; O2SAT 98
--- NOTE | 2024-10-11 14:06 | ED_ITS ---
HPI - General Adult General Chief complaint: Unspecified <GUEVARA Bruner Last Filed: 10/11/24 14:18> Stated complaint: bilat jaw swelling <GUEVARA Bruner Last Filed: 10/11/24 14:18> Time Seen by Provider: 10/11/24 14:07 <GUEVARA Bruner Last Filed: 10/11/24 14:18> Focused HPI: Patient is a 34 y/o female who presents to the ED with c/o jaw swelling. Patient reports she developed URI sx's, cough, fever on Monday. She woke up yesterday with swelling in her L sided face/jaw. Went to an urgent care yesterday and was Rx'd clindamycin and methylprednisolone. Today woke up with swelling throughout her R jaw/face. Prompted here for further evaluation. Reports fevers, up to 103F. Denies sore throat, dental pain. Denies difficulty breathing or swallowing. Denies nausea or vomiting. States she has been very thirsty. GENERAL: Well-appearing, well-nourished, and in no acute distress. HEAD: Normocephalic, atraumatic. ENT: mucous membranes are moist. No posterior pharynx erythema. No tonsillar hypertrophy or exudate. Uvula midline. No protrusion of soft palate. There is diffuse swelling and induration to bilateral submandibular regions, left greater than right. Erythema present a fair left submandibular region. No firm induration, swelling, tenderness on floor of mouth. No stridor or distress. Maintaining secretions. No muffled voice. No mucosal lesions. CHEST: Clear to auscultation. ?No respiratory distress. HEART: Regular rate and rhythm.? NEURO: ?Alert and oriented x3. Patient screened in triage and initial orders placed.? ?Additional care and disposition to be based upon?diagnostic testing and treatment. <GUEVARA Bruner Last Filed: 10/11/24 14:18> Focused HPI: Patient is a 34 y/o female who presents to the ED with c/o jaw swelling. Patient reports she developed URI sx's, cough, fever on Monday. She woke up yesterday with swelling in her L sided face/jaw. Went to an urgent care yesterday and was Rx'd clindamycin and methylprednisolone. Today woke up with swelling throughout her R jaw/face. Prompted here for further evaluation. Reports fevers, up to 103F. Denies sore throat, dental pain. Denies difficulty breathing or swallowing. Denies nausea or vomiting. States she has been very thirsty. GENERAL: Well-appearing, well-nourished, and in no acute distress. HEAD: Normocephalic, atraumatic. ENT: mucous membranes are moist. No posterior pharynx erythema. No tonsillar hypertrophy or exudate. Uvula midline. No protrusion of soft palate. There is diffuse swelling and mild induration to bilateral submandibular regions, left greater than right. Erythema present left submandibular region. No firm induration, swelling, tenderness on floor of mouth. No stridor or distress. Maintaining secretions. No muffled voice. No mucosal lesions. No brawny edema, no tongue protrusion or restricted jaw range of motion. Left-sided effusion without any perforation in the tympanic membrane. Right side clear without any tympanic membrane irritation or effusion CHEST: Clear to auscultation. ?No respiratory distress. HEART: Regular rate and rhythm.? NEURO: ?Alert and oriented x3. Patient screened in triage and initial orders placed.? ?Additional care and disposition to be based upon?diagnostic testing and treatment. <Samir Padgett MD - Last Filed: 10/11/24 17:15> Source: patient <Roberta Rios PA-C - Last Filed: 10/11/24 14:18> Mode of arrival: ambulatory <Roberta Rios PA-C - Last Filed: 10/11/24 14:18> Limitations: no limitations <Roberta Rios PA-C - Last Filed: 10/11/24 14:18> History of Present Illness HPI narrative: Agree with the HPI as described above. <Samir Padgett MD - Last Filed: 10/11/24 17:15> Related Data Allergies/adverse reactions: Allergies Allergy/AdvReac Type Severity Reaction Status Date / Time No Known Allergies Allergy Verified 10/11/24 12:10 <Roberta Rios PA-C - Last Filed: 10/11/24 14:18> Review of Systems 2 Review of Systems: As reviewed above in HPI <Samir Padgett MD - Last Filed: 10/11/24 17:15> [facility] Social History Social History: Social History Smoking packs per day: 1 Smoking cigarettes per day: 20.0 Years smoked: 15 Smoking pack-years: 15.00 Smoking status: Current every day smoker Tobacco type: cigarettes Second hand tobacco smoke exposure: Yes Substance use: never Lack of Transportation: No Lack of Food: Never True Current Housing: I Have Housing Concerned About Future Housing: No Difficulty Paying Gas/Electric Bills: No Difficulty Paying for Meds: No Currently Unemployed: No Education: High School Diploma/GED Difficulty w/ Childcare or Family Care: No Spiritual care concerns: No <Roberta Rios PA-C - Last Filed: 10/11/24 14:18> Exam 2 Narrative: GENERAL: Well-appearing, well-nourished, and in no acute distress. HEAD: Normocephalic, atraumatic. ENT: mucous membranes are moist. No posterior pharynx erythema. No tonsillar hypertrophy or exudate. Uvula midline. No protrusion of soft palate. There is diffuse swelling and mild induration to bilateral submandibular regions, left greater than right. Erythema present left submandibular region. No firm induration, swelling, tenderness on floor of mouth. No stridor or distress. Maintaining secretions. No muffled voice. No mucosal lesions. No brawny edema, no tongue protrusion or restricted jaw range of motion. Left-sided effusion without any perforation in the tympanic membrane. Right side clear without any tympanic membrane irritation or effusion CHEST: Clear to auscultation. ?No respiratory distress. HEART: Regular rate and rhythm.? NEURO: ?Alert and oriented x3. <Samir Padgett MD - Last Filed: 10/11/24 17:15> Course Vital Signs Vital signs: Vital Signs Temperature 36.6 C 10/11/24 12:06 Pulse Rate 98 10/11/24 12:06 Respiratory Rate 16 10/11/24 12:06 Blood Pressure 140/83 10/11/24 12:06 Pulse Oximetry 98 10/11/24 12:06 Temperature 36.6 C 10/11/24 12:06 Pulse Rate 98 10/11/24 12:06 Respiratory Rate 16 10/11/24 12:06 Blood Pressure 140/83 10/11/24 12:06 Pulse Oximetry 98 10/11/24 12:06 <Roberta Rios PA-C - Last Filed: 10/11/24 14:18> Vital Signs Temperature 36.6 C 10/11/24 12:06 Pulse Rate 98 10/11/24 12:06 Respiratory Rate 16 10/11/24 12:06 Blood Pressure 140/83 10/11/24 12:06 Pulse Oximetry 98 10/11/24 12:06 Temperature 36.6 C 10/11/24 12:06 Pulse Rate 98 10/11/24 12:06 Respiratory Rate 16 10/11/24 12:06 Blood Pressure 140/83 10/11/24 12:06 Pulse Oximetry 98 10/11/24 12:06 <Samir Padgett MD - Last Filed: 10/11/24 17:15> Medical Decision Making MDM Narrative Medical decision making narrative: MSE by TALIB in triage. <Roberta Rios PA-C - Last Filed: 10/11/24 14:18> MSE by TALIB in triage. 34-year-old otherwise healthy female presenting to the emergency depart with bilateral jaw swelling for last several days. Started left-sided and spread towards the right side. Was put on clindamycin and methylprednisolone at urgent care for suspected bacterial parotitis. Given the bilateral nature of her parotitis considerations for viral parotitis such as mumps versus other viral syndrome such as COVID or flu or even mono are possible. Patient could also have salivary gland obstructions or sialadenitis. Patient was fully vaccinated with MMR as a child but states that she has family members that had mumps despite being fully vaccinated. she is overall well appearing not any acute distress, no evidence of any airway compromise or airway obstruction. She is tolerating secretions, has a midline uvula, no tonsillar hypertrophy or adenoid hypertrophy. No peritonsillar abscess on examination. No muffled or distorted by voice. No significant tenderness with palpation of the lymph nodes in the neck although there is some enlargement bilaterally. Mucous membranes appear slightly dry. CT scan was obtained for further delineation as well as blood work and mumps IgG and IgM which will be sent out to laboratory evaluation for outpatient follow-up. she was given a 10 mg IV Decadron dose for swelling. Laboratory studies showed leukocytosis of 13.5, anemia of 11.7 which appears at her baseline. No wall platelet count. Electrolytes within normal limits, normal BUN and creatinine, normal glucose, normal LFTs. Tested positive for influenza a and negative for mono, RSV and COVID. Strep test negative. Mumps panel sent. CT scan shows bilateral lower face soft tissue swelling consistent with her examination as well as enlarged adenoids and palatine tonsils with small cyst likely mucous retention cyst although abscess not excluded. Patient has no evidence of peritonsillar or concerning abscess on physical examination. Bilateral cervical lymphadenopathy also likely reactive secondary to above. At this juncture patient is doing well, has normal vital signs and overall reassuring clinical examination. Her symptoms have been going on for 2 days without any concern for airway compromise and she is eating and drinking appropriately with normal range of motion of her jaw. She is given very strict return precautions, encouraged to continue taking her clindamycin and will be switched from her Medrol Dosepak to a high-dose prednisone for the next 5 days. She will be given PCP and ear nose and throat follow-up instructions. Patient verbalized the strict return precautions including developing shortness of breath, worsening swelling in her jaw, inability to tolerate p.o. intake, drooling, dysphonia or intractable fevers and will return to the ED or call 911. <Samir Padgett MD - Last Filed: 10/11/24 17:15> Medical Records Medical records reviewed: Yes I reviewed the external patient's medical records. <Samir Padgett MD - Last Filed: 10/11/24 17:15> Vital Signs Vital Signs: Vital Signs Temperature 36.6 C 10/11/24 12:06 Pulse Rate 98 10/11/24 12:06 Respiratory Rate 16 10/11/24 12:06 Blood Pressure 140/83 10/11/24 12:06 Pulse Oximetry 98 10/11/24 12:06 Temperature 36.6 C 10/11/24 12:06 Pulse Rate 98 10/11/24 12:06 Respiratory Rate 16 10/11/24 12:06 Blood Pressure 140/83 10/11/24 12:06 Pulse Oximetry 98 10/11/24 12:06 <Roberta Rios PA-C - Last Filed: 10/11/24 14:18> Vital Signs Temperature 36.6 C 10/11/24 12:06 Pulse Rate 98 10/11/24 12:06 Respiratory Rate 16 10/11/24 12:06 Blood Pressure 140/83 10/11/24 12:06 Pulse Oximetry 98 10/11/24 12:06 Temperature 36.6 C 10/11/24 12:06 Pulse Rate 98 10/11/24 12:06 Respiratory Rate 16 10/11/24 12:06 Blood Pressure 140/83 10/11/24 12:06 Pulse Oximetry 98 10/11/24 12:06 <Samir Padgett MD - Last Filed: 10/11/24 17:15> Lab Data Lab results reviewed: Yes I reviewed the patient's lab results. <Samir Padgett MD - Last Filed: 10/11/24 17:15> Result diagrams: 10/11/24 16:09 10/11/24 16:09 <Roberta Rios PA-C - Last Filed: 10/11/24 14:18> Labs: Lab Results 10/11/24 10/11/24 Range/Units 14:50 16:09 WBC 13.5 H (4.5-10.0) K/mm3 RBC 4.13 L (4.2-5.4) M/mm3 Hgb 11.7 L (12.0-15.0) g/dL Hct 35.5 L (37.0-47.0) % MCV 86.0 (80-100) fl MCH 28.3 (26-34) pg MCHC 33.0 (32-36) g/dl RDW 13.3 (11.5-14.5) % Plt Count 299 D (150-375) k/mm3 MPV 10.7 H (7.4-10.4) fl Immature Gran % (Auto) 0.4 (0-0.5) % Neut % (Auto) 79.8 H (45.5-73.1) % Lymph % (Auto) 11.0 L (18.3-44.2) % Jerome % (Auto) 8.2 (2.6-8.5) % Eos % (Auto) 0.1 (0-4.4) % Baso % (Auto) 0.5 (0.2-1.2) % Lymph # (Auto) 1.48 (0.9-3.2) K/mm3 Jerome # (Auto) 1.1 H (0.1-0.6) K/mm3 Eos # (Auto) 0.0 (0-0.3) K/mm3 Baso # (Auto) 0.1 (0.0-0.1) K/mm3 Abs Immat Gran (auto) 0.05 H (0.00-0.031) K/mm3 Absolute Neuts (auto) 10.8 H (1.3-6.7) K/mm3 Absolute Nucleated RBC 0.000 (0.0-0.012) K/mm3 Nucleated RBC % 0.0 (0.0-0.2) % Sodium 137 (137-145) mmol/L Potassium 4.1 (3.4-5.0) mmol/L Chloride 100 (98-107) mmol/L Carbon Dioxide 29 (22-30) mmol/L Anion Gap 8 (4-12) mmol/L BUN 6 L (7-17) mg/dL Creatinine 0.70 0.62 L (0.7-1.2) mg/dL Estim Creat Clear Calc 108 120 ml/min Estimated GFR > 60 > 60 (59 - ) Glucose 103 (65-110) mg/dL Calcium 8.7 (8.4-10.2) mg/dL Total Bilirubin 0.5 (0.2-1.3) mg/dL AST 33 (14-36) U/L ALT 25 (6-35) U/L Alkaline Phosphatase 78 (38-126) U/L Total Protein 7.0 (6.3-8.2) g/dL Albumin 3.7 (3.5-5.1) g/dL Monoscreen Negative (Negative) Influenza A (RT-PCR) Positive A (Negative) Influenza B (RT-PCR) Negative (Negative) Mumps Virus IgG Ab Pending Mumps Virus IgM Ab Pending RSV (RT-PCR) Negative (Negative) SARS-CoV-2 RNA (RT-PCR) Negative (Negative) Group A Strep (PCR) Not detected (Negative) <Roberta Rios PA-C - Last Filed: 10/11/24 14:18> Lab Results 10/11/24 10/11/24 Range/Units 14:50 16:09 WBC 13.5 H (4.5-10.0) K/mm3 RBC 4.13 L (4.2-5.4) M/mm3 Hgb 11.7 L (12.0-15.0) g/dL Hct 35.5 L (37.0-47.0) % MCV 86.0 (80-100) fl MCH 28.3 (26-34) pg MCHC 33.0 (32-36) g/dl RDW 13.3 (11.5-14.5) % Plt Count 299 D (150-375) k/mm3 MPV 10.7 H (7.4-10.4) fl Immature Gran % (Auto) 0.4 (0-0.5) % Neut % (Auto) 79.8 H (45.5-73.1) % Lymph % (Auto) 11.0 L (18.3-44.2) % Jerome % (Auto) 8.2 (2.6-8.5) % Eos % (Auto) 0.1 (0-4.4) % Baso % (Auto) 0.5 (0.2-1.2) % Lymph # (Auto) 1.48 (0.9-3.2) K/mm3 Jerome # (Auto) 1.1 H (0.1-0.6) K/mm3 Eos # (Auto) 0.0 (0-0.3) K/mm3 Baso # (Auto) 0.1 (0.0-0.1) K/mm3 Abs Immat Gran (auto) 0.05 H (0.00-0.031) K/mm3 Absolute Neuts (auto) 10.8 H (1.3-6.7) K/mm3 Absolute Nucleated RBC 0.000 (0.0-0.012) K/mm3 Nucleated RBC % 0.0 (0.0-0.2) % Sodium 137 (137-145) mmol/L Potassium 4.1 (3.4-5.0) mmol/L Chloride 100 (98-107) mmol/L Carbon Dioxide 29 (22-30) mmol/L Anion Gap 8 (4-12) mmol/L BUN 6 L (7-17) mg/dL Creatinine 0.70 0.62 L (0.7-1.2) mg/dL Estim Creat Clear Calc 108 120 ml/min Estimated GFR > 60 > 60 (59 - ) Glucose 103 (65-110) mg/dL Calcium 8.7 (8.4-10.2) mg/dL Total Bilirubin 0.5 (0.2-1.3) mg/dL AST 33 (14-36) U/L ALT 25 (6-35) U/L Alkaline Phosphatase 78 (38-126) U/L Total Protein 7.0 (6.3-8.2) g/dL Albumin 3.7 (3.5-5.1) g/dL Monoscreen Negative (Negative) Influenza A (RT-PCR) Positive A (Negative) Influenza B (RT-PCR) Negative (Negative) Mumps Virus IgG Ab Pending Mumps Virus IgM Ab Pending RSV (RT-PCR) Negative (Negative) SARS-CoV-2 RNA (RT-PCR) Negative (Negative) Group A Strep (PCR) Not detected (Negative) <Samir Padgett MD - Last Filed: 10/11/24 17:15> Imaging Data Attestation: I personally reviewed and interpreted this imaging study as follows: < Samir Padgett MD - Last Filed: 10/11/24 17:15> My impression: Impressions Soft Tissue Neck CT 10/11/24 15:08 IMPRESSION: 1. Bilateral lower face soft tissue swelling. 2. Enlarged adenoids and palatine tonsils. A 13 mm cyst in the adenoids may be a mucous retention cyst or abscess. 3. Bilateral cervical lymphadenopathy, likely reactive. <Samir Padgett MD - Last Filed: 10/11/24 17:15> Discharge Plan Discharge Clinical Impression: Mandibular swelling, Acute parotitis, Influenza A, Middle ear effusion <Roberta Rios PA-C - Last Filed: 10/11/24 14:18> Patient Disposition: Home, Self-Care <GUEVARA Bruner Last Filed: 10/11/24 14:18> Condition: Stable <GUEVARA Bruner Last Filed: 10/11/24 14:18> Instructions: Antibiotic Form, Influenza (ED), Parotid Duct Obstruction (ED), Sialoadenitis (ED), Viral Syndrome (ED), Mumps in Adults (ED) <GUEVARA Bruner Last Filed: 10/11/24 14:18> Additional Instructions: Your CT scan shows swelling in the soft tissues as well as lymph nodes being enlarged. There is a small cyst on your adenoids which clinically does not appear to be an infection. Your symptoms are likely secondary to viral versus bacterial infection and until the full viral panel is returned. You did test positive for influenza which could explain the reactive lymph nodes however recommendations are to continue taking your antibiotics to completion and we will send you home with prednisone for the swelling. Follow-up with the provided PCP and your nose and throat specialist for evaluation on outpatient basis. If you develop any shortness of breath, drooling, inability to open your mouth sores tolerate secretions, change in voice or any other concerns please return to the emergency department. <GUEVARA Bruner Last Filed: 10/11/24 14:18> Patient Language: Kenyan <GUEVARA Bruner Last Filed: 10/11/24 14:18> Prescriptions: New prednisone 50 mg tablet 50 mg PO DAILY 5 Days Qty: 5 0RF No Action ibuprofen 600 mg Tablet 600 mg PO Q6H PRN (Reason: Cramping) Qty: 30 0RF <GUEVARA Bruner Last Filed: 10/11/24 14:18> Follow-up/Referrals: Camilo Sousa MD [Physician] - 1 Week (Bilateral parotitis, left middle ear effusion) PHYSICIAN,PRODUCTION OPERATIONS MANAGER [Non-Staff] - Nilda Davies DO [Physician] - 3 Days (Established PCP, follow-up from ER) <GUEVARA Bruner Last Filed: 10/11/24 14:18> Time of Disposition: 17:13 <Roberta Rios PA-C - Last Filed: 10/11/24 14:18> 17:13 <Samir Padgett MD - Last Filed: 10/11/24 17:15>
--- OUTSIDE RECORDS SUMMARY | 2024-10-11 14:54 | XMS_ITS | Referral Summary ---
Author Organization [facility] [employer] system master Address [address] [address] Care Team Providers Care Epic Radiant Analyst Name Role Phone Unavailable Primary Care Provider Unavailabl e Source Comments [facility] [employer] [facility],non-owned Affiliates and Associated Physician Practices is amultiple site organization consisting of ambulatory clinics and hospital sitesin [place], [place], [place] and [place]. This disclosure is being madepursuant to the Care Everywhere program and may not contain all information available regarding this patient. Last updated 18.[employer] system master Allergies No known active allergies Medications * Be aware that medications may not be up to date on this document. Alwaysverify current medications with the patient. Medication Sig Dispensed Refills Start Date End Date Status albuterol HFA (PROVENTIL;VENTOLIN;AL OAIR) 108 (90 Base) MCG/ACT inhalerIndications:Acu te [...]
--- OUTSIDE RECORDS SUMMARY | 2024-10-11 14:54 | XMS_ITS | Data Portability ---
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 Lab lipid panel, serum 023 [address] [facility] [address], [place], [address], 3 10:41:59 HbA1c (hemoglob in A1c), blood 023 [address] [facility], [address], [place], [address], 3 10:41:59 CMP, serum or plasma 023 [address] [facility], [address], [place], [address], 3 10:41:59 CBC w/ auto diff 023 [address] [facility], [address], [place], [address], 3 10:41:59 vitamin B12 + folate, serum or blood 023 023 EDWARD [facility], [address], [place], [address], 3 10:41:59 iron + TIBC + ferritin, serum 023 023 STEVEN [facility], [address], [place], [address], 3 10:41:59 Referral None recorded. Procedures None recorded. Surgeries None recorded. Imaging None recorded. Medication Orders None recorded. Patient TargetsNo targets recorded. Patient Instructions Encounter Date Encounter Id Patient Instructions Last Modified By Organization Details Last Modified Time 01/30/2023 [id number] INFLUENZA VACCIN E TD/TDAP Recommended today, patient declined Ordered P atient will get at local pharmacy/health department MAMMOGRAM Recommended today, but patient declined Ordered N o screening indicated at this time/ no family history CERVICAL SCREENING/PELVIC EXAMINATION No screening necessary patient is up to date COLORECTAL SCREENING Recommended today, but patient declined Ordered C olonoscopy declined. Cologuard ordered No screening necessary until age 45 DEPRESSION SCREENING Continue current medication BMI Overweight Appropr iate Underweight O besity Continue healthy eating & exercise NUTRITION Continue healthy eating & exercise PHYSICAL ACTIVITY Need more activity Recommendation of 10-20 minutes of activity that causes mild breathlessness daily Recommendati on of 30 minutes of daily activity VISION Ordered Recommende d today ALCOHOL USE No alcohol use TOBACCO USE non smoker SEXUALLY ACTIVE Yes, Patient is in monogamous relationship GLUCOSE SCREENING Ordered LIPID SCREENING Ordered [id number] Not available 01/30/2023 17:07:56 Reason for Referral None Reported. Results Created Date Observation Date Name Description Value Unit Range Abnormal Flag Note LastModifiedBy Organization Detail LastModifiedTime 03/01/2003/03/2022 INSUL IN insulin 33.7 uIU/m L 2.6-24 .9 high Perfo rmed at: - [facility] [address] [place] [address] Lab Direc tor: Henrique fuentes PhD, Phone : [phone] Not Available [facility] (Lab) [address] [place], [address], 03/03/2022 12:11:25 03/01/20 22 03/01/2022 HEMOG LOBIN A1C HA1C 5.5 % 4.0-6. 0 Diabe zakia Scree mindy Crite bean: <5.7% Consi stent with absen ce of diabe zakia 5.7-6 .4% Consi stent with incre ased risk for diabe zakia (pred iabet es) >OR=6 .5% Consi stent with diabe zakia REFER ENCE: Diabe zakia Care 2016, 39(Draper ppl.1 ):s13 -s22 Not Available [facility] (Lab) [address] [place], [address], 03/01/2022 20:24:19 03/01/20 22 03/01/2022 CBC/C OMPLE TE BLD COUNT W/DIF F white blood cells 10.9 x10'3 /uL 4.2-10 .8 high Not Available [facility] (Lab) [address] [place], [address], 03/01/2022 18:52:11 03/01/20 22 03/01/2022 CBC/C OMPLE TE BLD COUNT W/DIF F red blood cells 4.75 x10'6 /uL 3.80-5 .20 Not Available [facility] (Lab) [address] [place], [address], 03/01/2022 18:52:11 03/01/20 22 03/01/2022 CBC/C OMPLE TE BLD COUNT W/DIF F hemoglobin 13.9 g/dL 12.0-1 5.6 Not Available [facility] (Lab) [address] [place], [address], 03/01/2022 18:52:11 03/01/20 22 03/01/2022 CBC/C OMPLE TE BLD COUNT W/DIF F hematocrit 41.6 % 35.7-4 5.7 Not Available [facility] (Lab) [address] [place], [address], 03/01/2022 18:52:11 03/01/20 22 03/01/2022 CBC/C OMPLE TE BLD COUNT W/DIF F mean red cell volume 87.6 fL 82.0-9 9.0 Not Available [facility] (Lab) [address] [place], [address], 03/01/2022 18:52:11 03/01/20 22 03/01/2022 CBC/C OMPLE TE BLD COUNT W/DIF F mean red cell hemoglobin 29.3 pg 27.0-3 3.0 Not Available [facility] (Lab) [address] [place], [address], 03/01/2022 18:52:11 03/01/20 22 03/01/2022 CBC/C OMPLE TE BLD COUNT W/DIF F mean RBC HGB concentratio n 33.4 g/dL 31.0-3 6.0 Not Available [facility] (Lab) [address] [place], [address], 03/01/2022 18:52:11 03/01/20 22 03/01/2022 CBC/C OMPLE TE BLD COUNT W/DIF F red cell distribution width 13.0 % 11.8-1 5.5 Not Available [facility] (Lab) [address] [place], [address], 03/01/2022 18:52:11 03/01/20 22 03/01/2022 CBC/C OMPLE TE BLD COUNT W/DIF F platelets 362 x10'3 /uL 150-40 0 Not Available [facility] (Lab) [address] [place], [address], 03/01/2022 18:52:11 03/01/20 22 03/01/2022 CBC/C OMPLE TE BLD COUNT W/DIF F mean platelet volume 11.3 fL 9.0-12 .4 Not Available [facility] (Lab) [address] [place], [address], 03/01/2022 18:52:11 03/01/20 22 03/01/2022 CBC/C OMPLE TE BLD COUNT W/DIF F neutrophils 59.0 % 39.0-7 2.0 Not Available [facility] (Lab) [address] [place], [address], 03/01/2022 18:52:11 03/01/20 22 03/01/2022 CBC/C OMPLE TE BLD COUNT W/DIF F lymphocytes 27.5 % 16.0-4 7.0 Not Available [facility] (Lab) [address] [place], [address], 03/01/2022 18:52:11 03/01/20 22 03/01/2022 CBC/C OMPLE TE BLD COUNT W/DIF F monocytes 10.2 % 5.0-12 .0 Not Available [facility] (Lab) [address] [place], [address], 03/01/2022 18:52:11 03/01/20 22 03/01/2022 CBC/C OMPLE TE BLD COUNT W/DIF F eosinophils 2.5 % 1.0-7. 0 Not Available [facility] (Lab) [address] [place], [address], 03/01/2022 18:52:11 03/01/20 22 03/01/2022 CBC/C OMPLE TE BLD COUNT W/DIF F basophils 0.5 % 0.0-2. 0 Not Available [facility] (Lab) [address] [place], [address], 03/01/2022 18:52:11 03/01/20 22 03/01/2022 CBC/C OMPLE TE BLD COUNT W/DIF F immature granulocytes 0.3 % 0.00-0 .50 Not Available [facility] (Lab) [address] [place], [address], 03/01/2022 18:52:11 03/01/20 22 03/01/2022 CBC/C OMPLE TE BLD COUNT W/DIF F neutrophils, absolute count 6.43 x10'3 /uL 1.5-8. 0 Not Available [facility] (Lab) [address] [place], [address], 03/01/2022 18:52:11 03/01/20 22 03/01/2022 CBC/C OMPLE TE BLD COUNT W/DIF F lymphocytes, absolute count 3.00 x10'3 /uL 1.07-3 .43 Not Available [facility] (Lab) [address] [place], [address], 03/01/2022 18:52:11 03/01/20 22 03/01/2022 CBC/C OMPLE TE BLD COUNT W/DIF F monocytes, absolute count 1.11 x10'3 /uL 0.29-0 .99 high Not Available [facility] (Lab) [address] [place], [address], 03/01/2022 18:52:11 03/01/20 22 03/01/2022 CBC/C OMPLE TE BLD COUNT W/DIF F eosinophils, absolute count 0.27 x10'3 /uL 0.02-0 .53 Not Available [facility] (Lab) [address] [place], [address], 03/01/2022 18:52:11 03/01/20 22 03/01/2022 CBC/C OMPLE TE BLD COUNT W/DIF F basophils, absolute count 0.05 x10'3 /uL 0.01-0 .08 Not Available [facility] (Lab) [address] [place], [address], 03/01/2022 18:52:11 03/01/20 22 03/01/2022 CBC/C OMPLE TE BLD COUNT W/DIF F immature granulocytes ,absolute 0.03 x10'3 /uL 0.00-0 .05 Not Available [facility] (Lab) [address] [place], [address], 03/01/2022 18:52:11 03/01/20 22 03/01/2022 CBC/C OMPLE TE BLD COUNT W/DIF F nucleated red blood cells 0.0 % -0 Not Available [facility] (Lab) [address] [place], [address], 03/01/2022 18:52:11 03/01/20 22 03/01/2022 CBC/C OMPLE TE BLD COUNT W/DIF F NRBC# 0.00 x10'3 /uL Not Available [facility] (Lab) [address] [place], [address], 03/01/2022 18:52:11 03/01/20 22 03/01/2022 CORTI JERICHO, TOTAL gato 7.3 ug/dL CORTI JERICHO RESUL T COMME NT: Refer ence Range : Befor e 10 a.m. Speci men: 4.5-2 2.7 Refer ence Range : After 5 p.m. Speci men: 1.7-[address] inter pret above resul ts accor dingl y Not Available [facility] (Lab) [address] [place], [address], 03/01/2022 18:51:52 03/01/20 22 03/01/2022 TSH thyroid-stim ulating hormone 0.698 uIU/m L 0.465- 4.680 Not Available [facility] (Lab) [address] [place], [address], 03/01/2022 18:51:48 03/01/20 22 03/01/2022 T4 FREE free T4 0.78 NG/dL 0.78-2 .19 Not Available [facility] (Lab) [address] [place], [address], 03/01/2022 18:42:52 03/01/20 22 03/01/2022 COMPR EHENS ALBARO METAB OLIC PANEL sodium 138 mmol/ L 137-14 5 Not Available [facility] (Lab) [address] [facility] [place], [address], 03/01/2022 18:14:06 03/01/20 22 03/01/2022 COMPR EHENS ALBARO METAB OLIC PANEL potassium 4.5 mmol/ L 3.5-5. 1 Not Available [facility] (Lab) [address] [place], [address], 03/01/2022 18:14:06 03/01/20 22 03/01/2022 COMPR EHENS ALBARO METAB OLIC PANEL chloride 107 mmol/ L 98-107 Not Available [facility] (Lab) [address] [place], [address], 03/01/2022 18:14:06 03/01/20 22 03/01/2022 COMPR EHENS ALBARO METAB OLIC PANEL carbon dioxide 21 mmol/ L 22-30 low Not Available [facility] (Lab) [address] [place], [address], 03/01/2022 18:14:06 03/01/20 22 03/01/2022 COMPR EHENS ALBARO METAB OLIC PANEL anion gap 14.5 mmol/ L 14-22 Not Available [facility] (Lab) [address] [place], [address], 03/01/2022 18:14:06 03/01/20 22 03/01/2022 COMPR EHENS ALBARO METAB OLIC PANEL glucose 91 mg/dL 70-99 Not Available [facility] (Lab) [address] [place], [address], 03/01/2022 18:14:06 03/01/20 22 03/01/2022 COMPR EHENS ALBARO METAB OLIC PANEL BUN 16 mg/dL 8-19 Not Available [facility] (Lab) [address] [place], [address], 03/01/2022 18:14:06 03/01/20 22 03/01/2022 COMPR EHENS ALBARO METAB OLIC PANEL creatinine 0.81 mg/dL 0.66-1 .25 Not Available [facility] (Lab) [address] [place], [address], 03/01/2022 18:14:06 03/01/20 22 03/01/2022 COMPR EHENS ALBARO METAB OLIC PANEL GFR >60 Refer ence Range : Feura [place] ge GFR Healt hy Adult : >60 mL/mi n/1.7 3 m2 Chron ic Kidne y Disea se: 15-60 mL/mi n/1.7 3 m2 Kidne y Failu re: <15/m L/min /1.73 m2 www.n iddk. nih.g ov The MDRD study equat ion has not been valid ated in child sejal <18 years of age; pregn ant women ; the elder ly >85 years of age; or in some racia l or ethni c subgr oups, such as Hiswa nics. Outsi de the valid ated celestine eters , estim ated GFR is less accur ate, requi ring clini memo judgm ent on a case- by-ca se basis . Clini meom inter preta tion for other races and ages must be made by the clini see. The MDRD study equat ion has not been valid ated for the evalu ation of serum creat inine relat ed to nutri michael l statu s or medic ation usage . For perso ns <18 years of age, a pedia tric GFR calcu lator is avail able on the NKF websi te: https ://sergio warner.o milena/pr eribertoess ional s/kdo qi/gf r_cal culat or Not Available [facility] (Lab) [address] [place], [address], 03/01/2022 18:14:06 07/12/20 22 03/01/2022 COMPR EHENS ALBARO METAB OLIC PANEL alkaline phosphatase 92 U/L 38-126 Not Available [facility] (Lab) [address] [place] [place], [address], 03/01/2022 18:14:06 03/01/20 22 03/01/2022 COMPR EHENS ALBARO METAB OLIC PANEL alanine aminotransfe rase 25 U/L 0-35 Not Available [facility] (Lab) [address] [place], [address], 03/01/2022 18:14:06 03/01/20 22 03/01/2022 COMPR EHENS ALBARO METAB OLIC PANEL aspartate aminotransfe rase 29 U/L 15-37 Not Available [facility] (Lab) [address] [place], [address], 03/01/2022 18:14:06 03/01/20 22 03/01/2022 COMPR EHENS ALBARO METAB OLIC PANEL bilirubin, total 0.40 mg/dL 0.20-1 .30 Not Available [facility] (Lab) [address] [place], [address], 03/01/2022 18:14:06 03/01/20 22 03/01/2022 COMPR EHENS ALBARO METAB OLIC PANEL calcium 9.2 mg/dL 8.4-10 .2 Not Available [facility] (Lab) [address] [place], [address], 03/01/2022 18:14:06 03/01/20 22 03/01/2022 COMPR EHENS ALBARO METAB OLIC PANEL total protein 7.9 g/dL 6.3-8. 2 Not Available [facility] (Lab) [address] [place], [address], 03/01/2022 18:14:06 03/01/20 22 03/01/2022 COMPR EHENS ALBARO METAB OLIC PANEL albumin 4.4 g/dL 3.4-5. 0 Not Available [facility] (Lab) [address] [place], [address], 03/01/2022 18:14:06 03/01/20 22 03/01/2022 COMPR EHENS ALBARO METAB OLIC PANEL globulin 3.5 g/dL 2.6-4. 2 Not Available [facility] (Lab) [address] [place], [address], 03/01/2022 18:14:06 03/01/20 22 03/01/2022 COMPR EHENS ALBARO METAB OLIC PANEL A/G ratio 1.3 ratio 1.0-2. 0 Not Available [facility] (Lab) [address] [place], [address], 03/01/2022 18:14:06 03/01/20 22 03/01/2022 LIPID PANEL cholesterol 222 mg/dL 140-19 9 high NIH LISA NSUS RECOM MENDA TION FOR REGINA STERO L: ADULT CHILD LOW RISK: <200 <170 BORDE RLINE : <200- 239 ----- HIGH RISK: >240 >200 Not Available [facility] (Lab) [address] [place], [address], 03/01/2022 18:14:01 03/01/20 22 03/01/2022 LIPID PANEL triglyceride s 333 mg/dL 0-150 high NIH LISA NSUS REPOR T RECOM MENDA TION FOR TRIGL YCERI MARCELLUS: ADULT CHILD LOW RISK: <150 ----- BODER LINE: 150-1 99 ----- HIGH RISK: >200 ----- Not Available [facility] (Lab) [address] [place], [address], 03/01/2022 18:14:01 03/01/20 22 03/01/2022 LIPID PANEL HDL cholesterol 37 mg/dL 40- low Not Available [facility] (Lab) [address] [place], [address], 03/01/2022 18:14:01 03/01/20 22 03/01/2022 LIPID PANEL LDL cholesterol, calculated 118 mg/dL 0-130 NIH LISA NSUS REPOR T RECOM MENDA TIONS FOR LDL: ADULT CHILD LOW RISK <130 <110 (OPTI MAL LDL) <100 ----- BORDE RLINE : 130-1 59 ----- HIGH RISK: >160 >130 A TRIGL YCERI DE RESUL T >400 INVAL IDATE S THE CALCU LATIO N FOR LDL FRACT IONAT ION - THE LDL RESUL T WILL NOT BE REPOR ABEL. Not Available [facility] (Lab) [address] [place], [address], 03/01/2022 18:14:01 Result Notes None recorded. Problems Name Problem SNOMED Code Status Onset Date Resolution Date Notes Provider Name and Address Organization Details Recorded Time Mixed anxiety and depressive disorder 123098300 Active 2022 AGGIE Langford [address], [address], [address], [employer] 3 18:17:35 Hyperlipide amadou 23090730 Active 2022 AGGIE Langford [address], [address], [employer] 3 18:17:43 Prediabetes 327101622 Active 2022 AGGIE Langford [address], [place] [address], [place], [address], [employer] 3 18:17:47 Morning sickness 41581266 Active 2022 AGGIE Langford [address], [address] [place] [address], [place], [address], [employer] 3 18:18:00 Pain in both feet 7658079952367 9102 Active 2022 AGGIE Langford [address], [address], [place], [address], [employer] 3 18:18:25 Anemia 923302926 Active 2022 ROMI LangfordLacy [address], [address], [place], [address], [employer] 3 16:19:35 Obesity 102435196 Active 2022 MERNA LangfordLacy [address], [address], [place], [address], [employer] 3 17:07:14 Problem Notes None recorded. Procedures Surgical History Date Name Laterality Status Provider Name and Address Organization Details Recorded Time 10/11/19 22 Cholecystectomy completed Not Available [facility] 08/2022 18:52:16 Imaging Results None recorded. Procedure Notes None recorded. Medical Equipment None Reported. Allergies No known drug allergies Medications Name Sig Start Date Stop Date Status Note LastModified by Organization Details LastModified Time amoxicill in 500 mg capsule TAKE 1 CAPSULE BY MOUTH 3 TIMES A DAY UNTIL GONE 09/21 completed Not Available Not Available Not Available fluconazo le 150 mg tablet 1 TAB NOW AND THEN TAKE ANOTHER IN 3 DAYS 11/04 completed Not Available Not Available Not Available meloxicam 15 mg tablet TAKE 1 TABLET BY MOUTH EVERY DAY 11/04 completed Not Available Not Available Not Available ondansetr on HCl 4 mg tablet TAKE 1 TABLET BY MOUTH EVERY 6 HOURS NEEDED FOR NAUSEA 11/04 completed Not Available Not Available Not Available clonazepa m 0.5 mg tablet TAKE 1 TABLET BY MOUTH THREE TIMES A DAY active Not Available Not Available No t Available phentermi ne 37.5 mg tablet TAKE 1 TABLET BY MOUTH EVERY MORNING 11/04 completed Not Available Not Available Not Available meloxicam 7.5 mg tablet TAKE 1 TO 2 TABLETS BY MOUTH EVERY DAY 11/04 completed Not Available Not Available Not Available oxycodone -acetamin ophen 5 mg-325 mg tablet TAKE 1 TABLET BY MOUTH EVERY 4 TO 6 HOURS NEEDED FOR PAIN 11/04 completed Not Available Not Available Not Available propranol ol 10 mg tablet TAKE 1 TABLET BY MOUTH THREE TIMES A DAY 11/04 completed Not Available Not Available Not Available metoclopr amide 5 mg tablet 01/30 completed Not Available Not Available Not Available etodolac 400 mg tablet 11/04 completed Not Available Not Available Not Available methylpre dnisolone 4 mg tablets in a dose pack TAKE 6 TABLETS ON DAY 1 DIRECTED ON PACKAGE AND DECREASE BY 1 TAB EACH DAY FOR A TOTAL OF 6 DAYS 11/04 completed Not Available Not Available Not Available ipratropi um bromide 42 mcg (0.06 %) nasal spray PLACE 2 SPRAYS INTO EACH NOSTRIL 3 TIMES DAILY 11/04 completed Not Available Not Available Not Available ondansetr on 4 mg disintegr ating tablet PLACE 1 TABLET UNDER THE TONGUE EVERY 8 HOURS NEEDED FOR NAUSEA 11/04 completed Not Available Not Available Not Available metformin ER 500 mg tablet,ex tended release 24 hr TAKE 1 TABLET BY MOUTH EVERY DAY 01/30 completed Not Available Not Available Not Available sertralin e 50 mg tablet 01/30 completed Not Available Not Available Not Available naproxen 500 mg tablet TAKE 1 TABLET BY MOUTH TWICE A DAY WITH FOOD 11/04 completed Not Available Not Available Not Available amoxicill in 875 mg-potass ium clavulana te 125 mg tablet TAKE 1 TABLET BY MOUTH TWICE DAILY WITH THE MORNING AND EVENING MEAL FOR 10 DAYS 10/19 completed Not Available Not Available Not Available hydroxyzi ne pamoate 25 mg capsule TAKE 1 - 2 CAPSULES DAILY NEEDED FOR ANXIETY 11/04 completed Not Available Not Available Not Available escitalop santiago 20 mg tablet TAKE 1 TABLET BY MOUTH EVERY DAY 11/04 completed Not Available Not Available Not Available Ciprodex 0.3 %-0.1 % ear drops,cheri pension INSTILL 4 DROPS INTO LEFT EAR TWICE DAILY FOR 7 DAYS. 11/04 completed Not Available Not Available Not Available rosuvasta tin 10 mg tablet TAKE 1 TABLET BY MOUTH EVERY DAY active Not Available Not Available No t Available duloxetin e 30 mg capsule,d elayed release Take 1 capsule every day by oral route. active psychiat ry Not Available Not Available Not Available duloxetin e 60 mg capsule,d elayed release TAKE 1 CAPSULE BY MOUTH EVERY DAY 06/07 completed Not Available Not Available Not Available levonorge strel 1.5 mg tablet 11/04 completed Not Available Not Available Not Available Vienva 0.1 mg-20 mcg tablet 11/04 completed Not Available Not Available Not Available 28 mg-800 mcg tablet Take 1 tablet every day by oral route. active Not Available Not Available No t Available Ozempic 0.25 mg or 0.5 mg (2 mg/1.5 mL) subcutane ous pen injector Inject 0.5 mg every week by subcutan eous route. active Not Available Not Available No t Available Mounjaro 5 mg/0.5 mL subcutane ous pen injector INJECT THE CONTENTS OF 1 PEN UNDER THE SKIN ONCE EVERY 7 DAYS 06/07 completed Not Available Not Available Not Available Vitals Date Recorded Body mass index (BMI) Body height Oxygen saturation Oxygen saturation in Arterial blood by Pulse oximetry Heart rate Body temperature Body weight Systolic blood pressure Diastolic blood pressure Provider Name and Address Organization Details Last Updated DateTime 2 38.4 kg/m2 167.64 cm 97 % 97 % 92 /min 97.7 [degF] 885782. 98 g 122 mm[Hg] 76 mm[Hg] Not Available [facility] 3 18:52:40 Date Recorded Body mass index (BMI) Body height Oxygen saturation Oxygen saturation in Arterial blood by Pulse oximetry Heart rate Body temperature Body weight Systolic blood pressure Diastolic blood pressure Provider Name and Address Organization Details Last Updated DateTime 2 38.9 kg/m2 167.64 cm 98 % 98 % 84 /min 97.6 [degF] 839528. 76 g 128 mm[Hg] 80 mm[Hg] Not Available [facility] 3 18:52:40 Date Recorded Body mass index (BMI) Body height Oxygen saturation Oxygen saturation in Arterial blood by Pulse oximetry Heart rate Body temperature Body weight Systolic blood pressure Diastolic blood pressure Provider Name and Address Organization Details Last Updated DateTime 2 38.4 kg/m2 167.64 cm 97 % 97 % 92 /min 97.6 [degF] 904713. 98 g 118 mm[Hg] 78 mm[Hg] Not Available [facility] 3 18:52:40 Date Recorded Body mass index (BMI) Body height Oxygen saturation Oxygen saturation in Arterial blood by Pulse oximetry Heart rate Body temperature Body weight Systolic blood pressure Diastolic blood pressure Provider Name and Address Organization Details Last Updated DateTime 2 38.3 kg/m2 167.64 cm 98 % 98 % 78 /min 97.9 [degF] 114048. 39 g 122 mm[Hg] 74 mm[Hg] Not Available [facility] 3 18:52:40 Date Recorded Body height Body mass index (BMI) Body weight Body temperature Heart rate Oxygen saturation Oxygen saturation in Arterial blood by Pulse oximetry Systolic blood pressure Diastolic blood pressure Provider Name and Address Organization Details Last Updated DateTime 3 167.64 cm 34.7 kg/m2 16900.3 6 g 98.2 [degF] 88 /min 97 % 97 % 128 mm[Hg] 82 mm[Hg] Laly Murray, JANIE [place] [facility] 3 16:05:47 Social History Question Answer Notes LastModified by Organization Details LastModified Time Tobacco Smoking Status Current Every Day Smoker Pt Vapes. Not Available [facility] 10/19/2022 18:52:13 What Is Your Level Of Alcohol Consumption? Occasional [id number] Information not available 10/19/2022 What Is Your Level Of Caffeine Consumption? Occasional [id number] Information not available 10/19/2022 In The 14 Days Before Symptom Onset, Have You Had Close Contact With A Laboratory-confi rmed COVID-19 While That Case Was Ill? No [id number] Information not available 10/19/2022 In The 14 Days Before Symptom Onset, Have You Had Close Contact With A Person Who Is Under Investigation For COVID-19 While That Person Was Ill? No [id number] Information not available 10/19/2022 What Type Of Diet Are You Following? REGULAR [id number] Information not available 10/19/2022 What Is The Highest Grade Or Level Of School You Have Completed Or The Highest Degree You Have Received? [id number] Information not available 10/19/2022 What Is Your Occupation? [employer] [id number] Information not available 10/19/2022 Have There Been Any Changes To Your Family Or Social Situation? No [id number] Information not available 10/19/2022 What Is The Fluoride Status Of Your Home? Unknown [id number] Information not available 10/19/2022 Are There Any Guns Present In Your Home? No [id number] Information not available 10/19/2022 Do You Use Insect Repellent Routinely? No [id number] Information not available 10/19/2022 Where Do You Live? [place]House [id number] Information not available 10/19/2022 What Was The Date Of Your Most Recent Tobacco Screening? 01/30/2023 [email or web address] Information not available 01/30/2023 Do You Have Any Pets? No [id number] Information not available 10/19/2022 What Is Your Relationship Status? Single [id number] Information not available 10/19/2022 Do You Use Your Seat Belt Or Car Seat Routinely? Yes MIGRATION.0301 [id number] Information not available 10/19/2022 Do You Have Smoke And Carbon Monoxide Detectors In Your Home? Yes MIGRATION.0301 [id number] Information not available 10/19/2022 Are You Passively Exposed To Smoke? Yes MIGRATION.0301 [id number] Information not available 10/19/2022 Are There Any Smokers In Your House? No MIGRATION.0301 [id number] Information not available 10/19/2022 Do You Feel Stressed (tense, Restless, Nervous, Or Anxious, Or Unable To Sleep At Night)? [id number] MIGRATION.0301 [id number] Information not available 10/19/2022 Do You Use Any Illicit Or Recreational Drugs? No MIGRATION.0301 [id number] Information not available 10/19/2022 Do You Use Sunscreen Routinely? No MIGRATION.0301 [id number] Information not available 10/19/2022 Have You Recently Traveled Abroad? No MIGRATION.0301 [id number] Information not available 10/19/2022 Do You Have Any Dietary Restrictions? No MIGRATION.0301 [id number] Information not available 10/19/2022 Do You Or Have You Ever Used Any Other Forms Of Tobacco Or Nicotine? Yes Vaps MIGRATION.0301 [id number] Information not available 10/19/2022 Sex: Unknown Functional Status Question Answer Note LastModified by Organizat ion Details LastModified Time What is your exercise level? Occasional MIGRATION.[id number] Information not available 10/19/2022 Mental Status None recorded. Family History Nothing Reported. Medical History Condition Response NERVE DISEASE N BLINDNESS N RHEUMATIC FEVER N KIDNEY STONES N BLADDER PROBLEMS N MRSA N OTHER # 1 N POLIO N LUNG DISEASE/DISORDER N HISTORY OF DRUG ABUSE N RADIATION / CHEMOTHERAPY N COPD N Other # 2 N BLOOD DISEASES N EAR OR HEARING PROBLEMS N MUMPS N SHINGLES N DEPRESSION (INCLUDING POST ) N BOWEL PROBLEMS N STROKE/TIA N ULCERS N BENIGN PROSTATIC HYPERPLASIA N MEASLES N HYPOTENSION N MYOCARDIAL INFARCTION N OBESITY N GERD/NAUSEA N ANEURYSM N URINARY/BLADDER/KIDNEY PROBLEMS N CORONARY ARTERY DISEASE (CAD) N ADDICTION CONCERNS N Impotence N ENDOMETRIOSIS N USE OF BLOOD THINNERS N SKIN PROBLEMS N GASTROINTESTINAL DISORDER N PERIPHERAL VASCULAR DISEASE N MUSCLE,JOINT OR BONE PROBLEMS N GASTROINTESTINAL BLEEDING N BLOOD CLOTS N ASTHMA N CATARACTS N ERECTILE DYSFUNCTION N VARICOSITIES N GI PROBLEMS N Low Testosterone N INFERTILITY N AIDS/HIV N CHEMOTHERAPY / RADIATION N LIVER DISEASE N MALE HYPOGONADISM N HYPERTENSION N Deficiency N TOURETTE'S N ANXIETY DISORDER N BLOOD TRANSFUSION N ANEMIA/BLOOD DISORDER N CHRONIC EAR INFECTIONS N BRONCHITIS N TUBERCULOSIS N GLAUCOMA N FOOT PROBLEM N DIVERTICULITIS N SLEEP APNEA N CHICKENPOX N INFECTIOUS DISEASE N PROSTATE N HEART ARRHYTHMIA N INSOMNIA N HIGH CHOLESTEROL / HYPERLIPIDEMIA N EYE PROBLEMS N HYPERTHYROIDISM N EDEMA N CHRONIC PAIN SYNDROME N HYPOTHYROIDISM N CAROTID BLOCKAGE N CONSTIPATION N BACK / NECK PROBLEMS N HAVE YOU BEEN HOSPITALIZED OR SEEN IN [facility] ER IN THE PAST YEAR ? N ATHEROSCLEROSIS N BREAST PROBLEMS N DIALYSIS N ECZEMA N OSTEOPOROSIS N ARTHRITIS N NO SIGNIFICANT PAST MEDICAL HISTORY N APPENDICITIS N DIABETES, TYPE N BAD TEETH N ENT N HEARTBURN / REFLUX N AUTISM SPECTRUM DISORDER (ASD) N HEPATITIS / LIVER DISEASE N GOUT N SLEEP DISORDER N ALZHEIMER'S DISEASE N Brain Problems N DEMENTIA N HERPES N SEIZURES/EPILEPSY N HEADACHES/MIGRAINES N VASCULAR DISEASE N PACEMAKER N Blood Disorder N DIZZINESS N HEART DISEASE/HEART PROBLEMS N KIDNEY DISEASE N MULTIPLE SCLEROSIS N CANCER: SPECIFY N CARDIAC ARRHYTHMIA N ATRIAL FIBRILLATION N Gall Stones N PULMONARY EMBOLISM N AUTOIMMUNE DISEASE N Gynecological HistoryNo gynecological history recorded. Obstetrics History GPAL:G 0 P 0 0 0 0 Past Encounters Encounter ID Performer Location Encounter Start Date Encounter Closed Date Diagnosis/Indication Diagnosis SNOMED-CT Code Diagnosis ICD10 Code Diagnosis Note [id number] [facility] [place] General Surgery [address] [facility] [facility] [address] 09/21/2021 00:00:00 09/21/2021 14:16:52 [id number] [facility] General Surgery [address] [place], [place] [address]., [address] [address] 10/19/2021 00:00:00 10/19/2021 12:00:58 [id number] [facility] Internal Med [facility] [address] [place] [address] [place] [address] [address] 11/04/2021 00:00:00 11/04/2021 12:43:23 [id number] [facility] Internal Med [facility] [address] [place], [place] [address]., [address] [address] 03/01/2022 00:00:00 03/01/2022 16:50:50 [id number] [facility] Internal Med [facility] [address] [place] [address]., [address] [address] 03/22/2022 00:00:00 03/22/2022 17:20:53 [id number] [facility] Internal Med [facility] [address] [place], [place] [address]., [address] [address] 04/26/2022 00:00:00 04/26/2022 16:15:46 [id number] [facility] Internal Med 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 Roger Glover changed her meds, she is on duloxetine call office if any change in mood or behavior Hyperlipidemia 26937204 E78.5 no meds, working on lifestyle measures Prediabetes 364886788 R7 3.03 not currently on any medsworkin g on diet/exerc ise Adult heal examination 787146222 Z00.00 Anemia 515493341 D64.9 check labscan continue PNV Cholesterol screening 27 0071405 Z13.220 Diabetes m ellitus screening 200791355 Z13.1 Depression screening 171 501158 Z13.31 Obesity 378508757 E66.9 recommend healthy, well balanced mealsfocus on lean meats, fresh vegetables , fresh fruits, whole grainsredu ce fast/proce ssed foods or eating out to no more than 1-2 times per weekaim to get 30 min of exercise most days of the week- walking is a great choicealso recommend resistance training 2-3 times per week Health Concerns Section Related Observation LastModified by Organization Detai ls LastModified Time None Recorded Concern Status LastModified by Organization Details LastModified Time None Recorded Advance Directives Directive None Recorded Payers Encounter Date Sequence Insurance Name Policy Number Policy Ricketts Covered Member ID Ricketts Member ID Guarantor Name 01/30/2023 1 [place] MELINDA HERNANDEZ ([place]) [id number] Clary Price [id number] Clary Price Notes Date Note Type Note Provider Name and Address Organization Details Recorded Time 01/30/2023 text/html Clary mann ts today for her annual wellness exam. She reports she delivered her baby 1 month ago. She ended up having some retained placenta and had hemorrhage. She reports she had 2 units red blood cells transfused while she was in the hospital. She has not had any follow-up labs. She reports she did see board winder last week but told her that she was coming to this appointment today so she thinks that is why no labs were ordered. She is currently on duloxetine for her mood. This is filled by her OBGYN currently. She does have a follow-up appointment with her psychiatrist at the beginning of February. She reports that she has been tolerating mother had well. She denies any SI or HI today. She feels like she can care for herself and her baby without difficulty. Claudia Mckinney, TALENT RECRUITER-C [address] [facility], [facility] [address], [place], [address], RONALD REAGAN [facility] [place] 01/30/2023 17:08:14 OBGyn Episode No OBEpisode recorded.
--- OUTSIDE RECORDS SUMMARY | 2024-10-11 14:54 | XMS_ITS | Clinical Summary ---
Author Organization [facility] Address [address] [place] [address] Care Team Providers Care Extrusion Press Supervisor Name Role Phone Unavailable Primary Care Provider Unavailabl e Source Comments [facility],non-owned Affiliates and Associated Physician Practices is amultiple site organization consisting of ambulatory clinics and hospital sitesin [place], [place], [place] and [place]. This disclosure is being madepursuant to the Care Everywhere program and may not contain all information available regarding this patient. Last updated 18.[employer] [facility] Allergies No known active allergies Medications * Be aware that medications may not be up to date on this document. Alwaysverify current medications with the patient. Medication Sig Dispensed Refills Start Date End Date Status albuterol HFA (PROVENTIL;VENTOLIN;MS OAIR) 108 (90 Base) MCG/ACT inhalerIndications:Acu te [...]
--- OUTSIDE RECORDS SUMMARY | 2024-10-11 14:54 | XMS_ITS | Data Portability ---
Author Organization [facility] [place] Address [address] [place] [address] [place] [address] Assessment Encounter Date Assessment Date Assessment LastModified by Organization Details LastModified Time 12/22/2022 12/22/2022 Patient is ___weeks . Discussed plan. [email or web address] Not available 12/22/2022 12:40:50 01/27/2023 01/27/2023 f/u wwe in 6 months, make appt with a psychologist for anxiety/depressi on follow up and med refills Not available 01/27/2023 12:24:22 08/11/2023 08/11/2023 Annual gynecological exam performed. Patient will come back in a year unless there are new symptoms. Suggest Calcium with Vitamin D if not eating in diet. Patient advised to get annual flu shot. Recommend yearly physicals and preform monthly breast exams. Genetic testing is available for patients with family history of cancer. Engage in safe sexual practices, use condoms. Encouraged to have daily exercise. Avoid tobacco and illicit drugs, moderation of alcohol. If BMI greater than 25 dietary consult advised. If you have any questions please call or email. Not available 08/11/2023 10:01:16 Plan of Treatment Reminders Order Date Submit Date Provider Last Modified By Organization Details Last Modified Time Details Appointments None recorded. Lab None recorded. Referral None recorded. Procedures None recorded. Surgeries None recorded. Imaging US, obstetric, follow-up 2022 05 023 [email or web address] [facility], [address], [address], [place], [address], 05/04/202 3 21:12:11 US, obstetric, biophysical profile + non-stress test 2022 023 [email or web address] [facility], [address], [place], [address], 3 21:12:11 non-stress test 2022 023 [email or web address] [facility], [address], [place], [address], 3 12:24:08 Medication Orders Cymbalta 30 mg capsule,del ayed release 2022 023 [email or web address] [id number], [address] , [place], [address], 3 09:40:28 hydroxyzine HCl 25 mg tablet 2022 023 [email or web address] [id number], [address], [place], [address], 3 13:55:25 Patient TargetsNo targets recorded. Patient InstructionsNo instructions recorded. Reason for Referral None Reported. Results Created Date Observation Date Name Description Value Unit Range Abnormal Flag Note LastModifiedBy Organization Detail LastModifiedTime 12/23/19 23 12/22/2022 CULTU RE: GROUP B STREP SCREE N, REFLE X SUSCE PTIBI LITY result report SEE RESULT S BELOW abnormal Test: Cultu re: Group B Strep , Refle x Susce ptibi lity ([facility]/ [facility] ) Speci men Sourc e: Vagin a/Rec lana Speci men Type: Vagin al/Re ctal Speci men Date: 023 1:08 PM Resul t Date: 023 5:39 PM Resul t Statu s: Final resul t Abnor mal: Yes Resul ting Lab: [facility] [address] [facility] [address] Tel: CULTU RE ----- ----- ----- --- Posit liu for Strep tococ cus agala ctiae (Grou p B) (Abno rmal) Clind amyci n = resis tant, eryth romyc in = resis tant. Cefaz milagros may be used for intra partu m proph ylaxi s in penic illin -susan rgic women at low risk, and Vanco mycin is recom torey d for women at high risk for anaph ylaxi s. Susce ptibi lity testi ng is not neces jesse for these drugs . Not Available [facility] (Lab) [address], [place], [address], 12/27/2022 18:42:03 11/30/19 23 11/29/2022 US, obste tric, bioph ysica l profi le + non-s tress test No observ ation record ed. [email or web address] [facility] [address], [place], [address], 11/29/2022 13:33:51 11/30/19 23 11/29/2022 US, obste tric, bioph ysica l profi le + non-s tress test No observ ation record ed. STEVENMICHAEL [address] [facility], [place], [address], 11/29/2022 21:15:23 11/30/19 23 11/29/2022 non-s tress test No observ ation record ed. [email or web address] [facility] [address], [place], [address], 11/29/2022 13:40:57 11/30/19 23 11/29/2022 US, obste tric, follo w-up No observ ation record ed. [email or web address] [facility] [address], [place], [address], 12/01/2022 10:32:41 12/01/19 23 11/29/2022 US, obste tric, follo w-up No observ ation record ed. [email or web address] [facility] [address], [place], [address], 12/01/2022 10:30:09 12/09/19 23 12/08/2022 US, obste tric, bioph ysica l profi le + non-s tress test No observ ation record ed. [email or web address] [facility] [address], [place], [address], 12/08/2022 12:59:02 12/09/19 23 12/08/2022 US, obste tric, bioph ysica l profi le + non-s tress test No observ ation record ed. [email or web address] [facility] [address], [place], [address], 12/09/2022 11:08:31 12/09/19 23 12/08/2022 non-s tress test No observ ation record ed. [email or web address] [facility] [address], [place], [address], 12/08/2022 21:34:29 12/16/19 23 12/15/2022 non-s tress test No observ ation record ed. [email or web address] [facility] [address], [place], [address], 12/15/2022 12:05:47 12/16/19 23 12/15/2022 US, obste tric, bioph ysica l profi le + non-s tress test No observ ation record ed. [email or web address] [facility] [address], [place], [address], 12/15/2022 12:46:09 12/16/19 23 12/15/2022 US, obste tric, follo w-up No observ ation record ed. [email or web address] [facility] [address], [place], [address], 12/16/2022 10:41:39 12/23/19 23 12/22/2022 non-s tress test No observ ation record ed. [email or web address] [facility] [address], [place], [address], 12/22/2022 12:23:31 12/23/19 23 12/22/2022 US, obste tric, follo w-up No observ ation record ed. STEVEN [facility]ana [address], [place], [address], 01/26/2023 11:43:34 12/23/19 23 12/22/2022 US, obste tric, follo w-up No observ ation record ed. [email or web address] [facility] [address], [place], [address], 12/22/2022 15:08:45 12/23/19 23 12/22/2022 US, obste tric, bioph ysica l profi le + non-s tress test No observ ation record ed. [email or web address] [facility] [address], [place], [address], 12/22/2022 15:08:35 Result Notes None recorded. Problems Name Problem SNOMED Code Status Onset Date Resolution Date Notes Provider Name and Address Organization Details Recorded Time Tobacco user 507309468 Active 2021 hoping to cut down Freda burgos [facility] 3 11:59:08 Mixed anxiety and depressi ve disorder 023180225 Active 2021 declines medicati on Freda Susanna burgos [facility] 3 11:59:08 Tobacco user 728294697 Completed 2021 hoping to cut down Freda Susanna burgos [facility] 3 11:59:08 Severe obesity complica ting pregnanc y 28324199552 798043 Completed 2021 BMI >40, ante testing 34w Freda Mullins [facility] 3 11:59:08 Prediabe zakia 312107555 Completed 2021 early 20w GCT Freda Mullins [facility] 3 11:59:08 Mixed anxiety and depressi ve disorder 948791290 Completed 2021 declines medicati on Freda Mullins [facility] [address] 11:59:[address] Concept Completed 201810/27/2021 Encntr for leadership program associate exam (general ) (routine ) w/o abn findings ;Recorde d Elsewher e: No Locat ion: [facility] S ource: EHR Assistant Center Manager bertha: N Shelby ce ID: [email or web address] Prabhjot lable Time: 09:30:00 AM Alma Vu [facility] 2 12:39:54 Syphilis test finding 402740530 Completed 201810/27/2021 Encounte r for STD screenin g;Record ed Elsewher e: No Locat ion: [facility] S ource: EHR Assistant Center Manager bertha: N Andrewti ce ID: [email or web address] Prabhjot lable Time: 08:30:00 AM Alma Vu [facility] 2 12:39:57 Infectio n screenin g Completed 201810/27/2021 Encounte r for screenin g for oth infec/pa rastc diseases ;Recorde d Elsewher e: No Locat ion: [facility] S ource: EHR Assistant Center Manager bertha: N Andrewti ce ID: [email or web address] Prabhjot lable Time: 11:23:18 AM Alma Horace [facility] 2 12:39:52 Problem Notes None recorded. Procedures Surgical History Date Name Laterality Status Provider Name and Address Organization Details Recorded Time 08/11/20 23 Date of Last Pap Smear completed Freda Mullins [facility] 08/11/2023 09:40:51 08/21/19 20 cholecystectomy completed Freda Mullins [facility] 08/11/2023 09:41:20 Imaging Results Imaging Date Name Status LastModified by Organiz ation Details LastModified Time 11/29/2022 US, obstetric, biophysical profile + non-stress test completed [address], [place], [address], 11/29/2022 13:33:51 11/29/2022 US, obstetric, biophysical profile + non-stress test completed STEVEN Adriana [address], [place], [address], 11/29/2022 21:15:23 11/29/2022 non-stress test completed joleen Klein maryjo [address], [place], [address], 11/29/2022 13:40:57 11/29/2022 US, obstetric, follow-up completed [email or web address] [facility] [address] [place] [address], [address], 12/01/2022 10:32:41 11/29/2022 US, obstetric, follow-up completed [email or web address] [facility] [address] [place], [address], 12/01/2022 10:30:09 12/08/2022 US, obstetric, biophysical profile + non-stress [email or web address] [place] [address] [address], [place], [address], 12/08/2022 12:59:02 12/08/2022 US, obstetric, biophysical profile + non-stress test completed [email or web address] Adriana [address], [place], [address], 12/09/2022 11:08:31 12/08/2022 non-stress test completed [email or web address] [facility] [address], [place], [address], 12/08/2022 21:34:29 12/15/2022 non-stress test completed [email or web address] [facility] [address], [place], [address], 12/15/2022 12:05:47 12/15/2022 US, obstetric, biophysical profile + non-stress test completed [email or web address] [facility] [address], [place], [address], 12/15/2022 12:46:09 12/15/2022 US, obstetric, follow-up completed Adriana [address], [place], [address], 12/16/2022 10:41:39 12/22/2022 non-stress test [facility] [address], [place], [address], 12/22/2022 12:23:31 12/22/2022 US, obstetric, follow-up completed STEVEN Adriana [address], [place], [address], 01/26/2023 11:43:34 12/22/2022 US, obstetric, follow-up completed [email or web address] [facility] [address], [place], [address], 12/22/2022 15:08:45 12/22/2022 US, obstetric, biophysical profile + non-stress test completed [email or web address] [facility] [address], [place], [address], 12/22/2022 15:08:35 Procedure Notes None recorded. Medical Equipment None Reported. Allergies No known drug allergies Medications Name Sig Start Date Stop Date Status Note LastModified by Organization Details LastModified Time fc2 female condom misc 10/28 completed Not Available Not Available Not Available status covid-19/ flu a-b antigen tst TEST DIRECTED TODAY 08/11 completed Not Available Not Available Not Available cyclobenz aprine 10 mg tablet TAKE 1 TABLET BY MOUTH EVERY 8 HOURS NEEDED FOR MUSCLE SPASMS 01/27 completed Not Available Not Available Not Available amoxicill in 500 mg capsule TAKE 1 CAPSULE BY MOUTH 3 TIMES A DAY UNTIL GONE 10/28 completed Not Available Not Available Not Available fluconazo le 150 mg tablet 1 TAB NOW AND THEN TAKE ANOTHER IN 3 DAYS 10/28 completed Not Available Not Available Not Available meloxicam 15 mg tablet TAKE 1 TABLET BY MOUTH EVERY DAY 10/28 completed Not Available Not Available Not Available ondansetr on HCl 4 mg tablet TAKE 1 TABLET BY MOUTH EVERY 6 HOURS NEEDED FOR NAUSEA 10/28 completed Not Available Not Available Not Available clonazepa m 0.5 mg tablet TAKE 1 TABLET BY MOUTH THREE TIMES A DAY active Not Available Not Available No t Available phentermi ne 37.5 mg tablet TAKE 1 TABLET BY MOUTH EVERY MORNING 10/28 completed Not Available Not Available Not Available meloxicam 7.5 mg tablet TAKE 1 TO 2 TABLETS BY MOUTH EVERY DAY 10/28 completed Not Available Not Available Not Available oxycodone -acetamin ophen 5 mg-325 mg tablet TAKE 1 TABLET BY MOUTH EVERY 4 TO 6 HOURS NEEDED FOR PAIN 10/28 completed Not Available Not Available Not Available propranol ol 10 mg tablet TAKE 1 TABLET BY MOUTH THREE TIMES A DAY 10/28 completed Not Available Not Available Not Available metoclopr amide 5 mg tablet 07/05 completed Not Available Not Available Not Available Flagyl 500 mg tablet take 1 tablet by oral route once 10/27 completed Prescrib ed Elsewher e: No Locat ion: [facility] odify By: [email or web address] Encount er DateTime : 05/29/20 11:54:43 AM Not Available Not Available Not Available hydroxyzi ne HCl 25 mg tablet TAKE 1 TABLET BY MOUTH THREE TIMES A DAY active Not Available Not Available No t Available ibuprofen 600 mg tablet TAKE ONE TABLET BY MOUTH EVERY 6 HOURS NEEDED FOR CRAMPING 01/27 completed Not Available Not Available Not Available methylpre dnisolone 4 mg tablets in a dose pack TAKE 6 TABLETS ON DAY 1 DIRECTED ON PACKAGE AND DECREASE BY 1 TAB EACH DAY FOR A TOTAL OF 6 DAYS 10/28 completed Not Available Not Available Not Available ipratropi um bromide 42 mcg (0.06 %) nasal spray PLACE 2 SPRAYS INTO EACH NOSTRIL 3 TIMES DAILY 10/28 completed Not Available Not Available Not Available ondansetr on 4 mg disintegr ating tablet PLACE 1 TABLET UNDER THE TONGUE EVERY 8 HOURS NEEDED FOR NAUSEA 10/28 completed Not Available Not Available Not Available metformin ER 500 mg tablet,ex tended release 24 hr TAKE 1 TABLET BY MOUTH EVERY DAY 07/05 completed Not Available Not Available Not Available sertralin e 50 mg tablet Take 1 tablet every day by oral route. 07/05 completed Not Available Not Available Not Available naproxen 500 mg tablet TAKE 1 TABLET BY MOUTH TWICE A DAY WITH FOOD 10/28 completed Not Available Not Available Not Available amoxicill in 875 mg-potass ium clavulana te 125 mg tablet TAKE 1 TABLET BY MOUTH TWICE DAILY WITH THE MORNING AND EVENING MEAL FOR 10 DAYS 10/28 completed Not Available Not Available Not Available hydroxyzi ne pamoate 25 mg capsule TAKE 1 - 2 CAPSULES DAILY NEEDED FOR ANXIETY 10/28 completed Not Available Not Available Not Available aripipraz ole 5 mg tablet Take 1 tablet every day by oral route. active Not Available Not Available No t Available Ciprodex 0.3 %-0.1 % ear drops,cheri pension INSTILL 4 DROPS INTO LEFT EAR TWICE DAILY FOR 7 DAYS. 10/28 completed Not Available Not Available Not Available rosuvasta tin 10 mg tablet TAKE 1 TABLET BY MOUTH EVERY DAY active Not Available Not Available No t Available nitrofura ntoin monohydra te/macroc rystals 100 mg capsule TAKE 1 CAPSULE BY MOUTH EVERY 12 HOURS FOR 10 DAYS 01/27 completed Not Available Not Available Not Available duloxetin e 20 mg capsule,d elayed release TAKE 2 CAPSULES BY MOUTH ONCE A DAY active Not Available Not Available No t Available duloxetin e 30 mg capsule,d elayed release TAKE 1 CAPSULE BY MOUTH EVERY DAY 08/11 completed Not Available Not Available Not Available duloxetin e 60 mg capsule,d elayed release TAKE 1 CAPSULE BY MOUTH EVERY DAY 05/08 completed Not Available Not Available Not Available levonorge strel 1.5 mg tablet 10/28 completed Not Available Not Available Not Available Vienva 0.1 mg-20 mcg tablet 10/28 completed Not Available Not Available Not Available Mounjaro 5 mg/0.5 mL subcutane ous pen injector INJECT THE CONTENTS OF 1 PEN UNDER THE SKIN ONCE EVERY 7 DAYS 07/05 completed Not Available Not Available Not Available Vitals Date Recorded Body height Body mass index (BMI) Systolic blood pressure Diastolic blood pressure Provider Name and Address Organization Details Last Updated DateTime 12/22/2022 162.56 cm 42.6 kg/m2 131 mm[Hg] 77 mm[Hg] Amanda Rao [facility] 12/22/2022 12:41:04 Date Recorded Body weight Provider Name an d Address Organization Details Last Updated DateTime 12/22/2022 990958.45849 g Med Castillo MD [address], [place], [address], [facility] 12/22/2022 12:57:28 Date Recorded Body height Body mass index (BMI) Body weight Systolic blood pressure Diastolic blood pressure Provider Name and Address Organization Details Last Updated DateTime 01/27/2023 162.56 cm 37.6 kg/m2 66421.72 903 g 107 mm[Hg] 75 mm[Hg] Freda Mullins [facility] 11:57:21 Date Recorded Body height Body mass index (BMI) Body weight Systolic blood pressure Diastolic blood pressure Provider Name and Address Organization Details Last Updated DateTime 08/11/2023 162.56 cm 41 kg/m2 616412.5 8 g 115 mm[Hg] 80 mm[Hg] Freda Mullins [facility] 3 09:40:17 Social History Question Answer Notes LastModified by Organizat ion Details LastModified Time Tobacco Smoking Status Former Smoker Amanda Perlita [facility] 06/24/2020 12:58:18 What Is Your Level Of Alcohol Consumption? None Information not available 06/24/2020 Are You Blind Or Do You Have Difficulty Seeing? No [email or web address] Information not available 11/29/2022 In The 14 Days Before Symptom Onset, Have You Had Close Contact With A Laboratory-confir med COVID-19 While That Case Was Ill? No [email or web address] Information not available 11/29/2022 In The 14 Days Before Symptom Onset, Have You Had Close Contact With A Person Who Is Under Investigation For COVID-19 While That Person Was Ill? No Information not available 11/29/2022 Have You Been To An Area Known To Be High Risk For COVID-19? No [email or web address] Information not available 11/29/2022 Are You Deaf Or Do You Have Serious Difficulty Hearing? No [email or web address] Information not available 11/29/2022 Do You Or Have You Ever Used E-cigarettes Or Vape? Current User Of Electronic Cigarettes Information not available 06/24/2020 Do You Have Smoke And Carbon Monoxide Detectors In Your Home? Yes [email or web address] Information not available 11/29/2022 Do You Use Sunscreen Routinely? Yes [email or web address] Information not available 11/29/2022 Sex: Unknown Functional Status Question Answer Note LastModified by Organizat ion Details LastModified Time Do you have difficulty walking or climbing stairs? No [email or web address] Information not available 11/29/2022 Are you able to walk? YESWOREST [email or web address] Information not available 11/29/2022 Are you able to care for yourself? Yes [email or web address] Information not available 11/29/2022 Do you have difficulty dressing or bathing? No [email or web address] Information not available 11/29/2022 What is your exercise level? None Information not available 06/24/2020 Mental Status None recorded. Family History Nothing Reported. Medical History Condition Response Allergies (Food, seasonal, environmental ) N Other N Breast Cancer N Drug/Latex Allergies/Reactions N Blood Transfusion N Lung Disease N Dermatologic Disorders N Defects or Inherited Disease N Breast Problem N Gestational Diabetes N Hematologic disorders N Anesthesia Complications N History of STI Y Deep Vein Thrombosis N Polycystic ovary syndrome N Anxiety Disorder Y Autoimmune disease N Arthritis N Polyps N Infertility N History of abnormal pap N Acid Reflux (GERD) N Cancer N Varicosities N Stroke N Neurologic/Epilepsy N Endometriosis N High Cholesterol Y Fibromyalgia N Headaches N Kidney Disease N Heart Problems N Kidney or Bladder Problems N Thyroid Problems N GI Problems N Eating Disorder N Anemia N Art (IVF or FET) N Psychiatric Illness N Ovarian Cancer N Diabetes N Pulmonary (TB, Asthma) N Hepatitis/Liver Disease N No Past Medical History N Eczema N Urinary Tract Infection N Abuse/Domestic Violence N Asthma N Trauma/Violence N Depression/ depression Y Heart Disease N Pre-Eclampsia N Hypertension N Osteoporosis N Thrombophilias N Gynecological History Statement/Question Response Date of LMP 07/24/2023 Sexually Active? Y STIs/STDs Yes HPV Vaccine N Date of Last Pap Smear 08/11/2023 Sexual Problems? N Current Control Method None LMP Unknown Obstetrics History GPAL:G 1 P 1 0 0 1 Type Value Full Term 1 Living 1 Total 1 Past Encounters Encounter ID Performer Location Encounter Start Date Encounter Closed Date Diagnosis/Indication Diagnosis SNOMED-CT Code Diagnosis ICD10 Code Diagnosis Note [id number] Amna Ulrich [facility] [address] [address] 06/24/2020 12:46:53 06/24/2020 15:38:34 Gynecologic examination 38586923 Z01.419 Take Calcium with Vitamin D 1200mg daily if not receiving in daily diet. It is strongly advised to have an annual flu shot and up can obtain at most pharmacies . If you have not had a TDap shot in the last 10 years you should obtain one as well. Discussed with patient & provided with informatio n regarding Gardisil vaccine to prevent the 4 strains for HPV that cause cervical cancer if under age 26. Encourage safe sexual practices, to use condoms and limit partners if not already in a monogamous relationsh ip. Do monthly self breast exams. Have mammogram yearly or every other year depending on family history. BRCA testing is now available for patients with strong genetic history of female cancer. If interested contact the office. Engage in daily exercise of low impact aerobic exercise 45-60 minutes 4-5 times weekly. Avoid tobacco and illicit drugs as well as using moderation with alcohol intake less than 1-2 8 oz beverages daily. This lifestyle behavior pattern will lead to less health conditions and longer life span. If BMI greater than 25 weight watchers or dietary consult advised. Patient received above instructio ns, and questions have been answered. If you have any questions please call or respond to this email. Patient was made aware of the patient portal and may obtain a paper copy of today's plan if desired. Sexually t ransmitted infectious disease 0048649 A64 Pt desires full std screening. [id number] Amnanikos Ulrich [facility] [address] [address] 10/28/2021 12:01:28 10/29/2021 16:10:43 Gynecologic examination 07999581 Z01.419 Z11.51 Take Calcium with Vitamin D 1200mg daily if not receiving in daily diet. It is strongly advised to have an annual flu shot and up can obtain at most pharmacies . If you have not had a TDap shot in the last 10 years you should obtain one as well. Discussed with patient & provided with informatio n regarding Gardisil vaccine to prevent the 4 strains for HPV that cause cervical cancer if under age 26. Encourage safe sexual practices, to use condoms and limit partners if not already in a monogamous relationsh ip. Do monthly self breast exams. Have mammogram yearly or every other year depending on family history. BRCA testing is now available for patients with strong genetic history of female cancer. If interested contact the office. Engage in daily exercise of low impact aerobic exercise 45-60 minutes 4-5 times weekly. Avoid tobacco and illicit drugs as well as using moderation with alcohol intake less than 1-2 8 oz beverages daily. This lifestyle behavior pattern will lead to less health conditions and longer life span. If BMI greater than 25 weight watchers or dietary consult advised. Patient received above instructio ns, and questions have been answered. If you have any questions please call or respond to this email. Patient was made aware of the patient portal and may obtain a paper copy of today's plan if desired. Sexually t ransmitted infectious disease 9930723 A64 Pt desires full std screening. [id number] Milka [facility] [address] [address] 06/06/2022 14:22:26 06/06/2022 14:55:09 screening 617378773 Z36.87 [id number] Vanessa Stewart MD [facility] [address],[place] [address] 06/06/2022 14:22:53 06/07/2022 16:18:00 test positive 144163961 Z32.01 Tobacco user 770637281 Z 72.0 Prediabetes 900029102 R7 3.03 Mixed anxi ety and depressive disorder 603386237 F41.8 Severe obe sity complicating 3274074444 2417239 O99.211 [id number] Milka Ellis [facility] [address],[place] [address] 07/05/2022 14:58:07 07/05/2022 17:58:15 [id number] Vanessa Stewart MD [facility] [address] [address],[place] [address] 07/05/2022 15:28:26 07/05/2022 17:39:58 Routine care 809158388 Z34.91 Mixed anxi ety and depressive disorder 917187124 F41.8 Prediabetes 452948976 R7 3.03 Severe obe sity complicating 4302152941 7818555 O99.211 Tobacco user 403750872 Z 72.0 [id number] Vanessa Stewart MD [facility] [address],[place] [address] 08/02/2022 16:29:38 08/03/2022 16:30:19 Routine care 993014612 Z34.91 Severe obe sity complicating [id number] 2551579 O99.211 Tobacco user 523416177 Z 72.0 [id number] Radha Prabhakar [facility] [address],[place] [address] 10/20/2022 15:27:41 10/21/2022 11:01:31 screening 299164289 Z36.3 [id number] Med Castillo MD [facility] [address],[place] [address] 10/20/2022 15:28:06 10/20/2022 17:28:28 Routine care 838174154 Z34.02 [id number] Vanessa Stewart MD [facility] [address],[place] [address] 11/16/2022 15:12:05 11/18/2022 22:05:32 Routine care 813392080 Z34.91 Severe obe sity complicating 9280750042 3800530 O99.211 [id number] Milka Ellis [facility] [address],[place] [address] 11/29/2022 11:28:28 11/29/2022 12:39:35 Maternal obesity complicating , childbirth and the puerperium, antepartum 4068530981 07 O99.213 Z3A.33 [id number] Dang Renéanettejenni bueno [facility] [address],[place] [address] 11/29/2022 11:29:03 11/29/2022 13:40:58 Maternal obesity complicating , childbirth and the puerperium, antepartum 3303169617 07 Z3A.33 [id number] [facility] [address],[place] [address] 11/29/2022 11:29:55 11/29/2022 15:38:32 Routine care 098359695 Z34.93 [id number] Radha Prabhakar [facility] [address],[place] [address] 12/08/2022 11:47:00 12/08/2022 12:48:08 Maternal obesity complicating , childbirth and the puerperium, antepartum 0589154886 07 O99.213 Z3A.34 [id number] [facility] [address],[place] [address] 12/08/2022 11:49:50 12/10/2022 15:07:47 [id number] Fely Ramos [facility] [address],[place] [address] 1 12/08/2022 11:51:02 12/08/2022 14:55:03 Severe obesity complicating [id number] 4780685 O99.211 [id number] [facility] [address],[place] [address] 12/15/2022 11:30:11 12/15/2022 12:06:37 Maternal obesity complicating , childbirth and the puerperium, antepartum 6449550407 07 O99.213 Z3A.34 [id number] [facility] [address],[place] [address] 12/15/2022 11:30:50 12/15/2022 12:46:31 Maternal obesity complicating , childbirth and the puerperium, antepartum 5980445623 07 O99.213 Z3A.35 [id number] [facility] [address],[place] [address] 12/22/2022 11:26:31 12/22/2022 12:24:08 Severe obesity complicating 7166580588 [id number] O99.211 [id number] [facility] [address],[place] [address] 12/22/2022 11:26:48 12/22/2022 14:23:04 Maternal obesity complicating , childbirth and the puerperium, antepartum 0698701080 07 O99.213 Z3A.36 [id number] Med Castillo MD [facility] [address],[place] [address] 12/22/2022 11:27:08 12/22/2022 12:59:24 Routine care 162684650 Z34.93 [id number] Freda Mullins [facility] [address],[place] [address] 01/27/2023 11:31:37 01/27/2023 12:25:05 Mixed anxiety and depressive disorder 174207897 F41.8 [id number] [facility] [address],[place] [address] 08/11/2023 09:31:20 08/11/2023 10:14:00 Routine care 346505931 Z34.90 Health Concerns Section Related Observation LastModified by Organization Detai ls LastModified Time None Recorded Concern Status LastModified by Organization Details LastModified Time None Recorded Advance Directives Directive None Recorded Payers Encounter Date Sequence Insurance Name Policy Number Policy Ricketts Covered Member ID Ricketts Member ID Guarantor Name 12/22/2022 1 [place] [id number] Clary A Dee [id number] Clary Dee 12/22/2022 1 [place] [id number] Clary A Dee [id number] Clary Dee 12/22/2022 1 [place] [id number] Clary A [place] [id number] Clary [place] 01/27/2023 1 [place] [id number] Clary A Dee [id number] Clary Dee 08/11/2023 1 [place] [id number] Clary A [place] [id number] Clary Dee Notes Date Note Type Note Provider Name and Address Organization Details Recorded Time 01/27/2023 text/html VisitReported bypatient.Quality:N Context:complicatio ns of : none; complications of labor: ; complications: hemorrhage; feeding choice: bottle; good support from partner/family; resumed menstrual bleeding no; pp hemorrhage, bakri Associated Symptoms:no abnormal bleeding; no vaginal discharge; no pelvic pain; no constipation; no fecal incontinence; no dysuria; no urinary incontinence; no fever; hx anxiety/depression saw psychiatrist who had her on cymbalta and hydralozine Contraception Plan:declines contraceptionNotes: no suicidal thoughts but now bottle feeding and would like to resume medication Freda burgos [facility] 02/10/2023 17:49:58 08/11/2023 text/html Annual GYNReport ed bypatient.History:n o gynecologic complaints Menstrual cycle:Normal menses Urinary symptoms:No hematuria; No incontinence Vulva:No genital lesion Vagina:Normal vaginal discharge Breast:No breast pain; No breast lump; No nipple discharge Sexual complaints:No sexual complaints; No pain during intercourse; Normal libido Menopausal Symptoms:No menopausal symptoms; Normal vaginal lubrication Psychological symptoms:No depression; No anxiety; No PMDD Preventive measures:Encourage self breast examination; Encourage regular exerciseNotes:no bcm, not dating , broke up with fob, doing well, baby great!seeing psych, pap up to date Shalini Santiago, CNM [address], [place], [address], [facility] 08/11/2023 10:07:22 OBGyn Episode Ob Episode Information Episode Created Date Number of Fetuses Patient Bloodtype Patient rh Status Prepregnancy Weight lbs Domestic Partner Domestic Partner Phone Father Name Director Of Consumer Affairs Status 07/05/20 22 1 O Positive 234 CLOSED Fetus Data First Name Last Name Admitted to NICU Weight (g) Sex Living Outcome Pediatric Complications Fetus ID Race Codes Race Delivery Type 3345.24 1 M true Full Term [id number] Vaginal Delivery Problems Problem Notes HYPERFLEXED FOOT - mfm - 4/1 1 315 us only - f/u as clinically indicated Problem Name Start Date End Date Resolution Snomed Code Not e Tobacco user 06/06/2022 [id number] hoping to cut down Severe obesity complicating 06/06/2022 [id number] BMI >40, a nte testing 34w Prediabetes 06/06/2022 789217821 early 2 0w GCT Mixed anxiety and depressive disorder 06/06/2022 082209141 declines medication Liborio Calculation Initial Liborio Date Initial Exam Date Initial Exam Provider Initial Ultrasound Date Last Menstrual Period Date Ultra Sound Weeks Gestation 01/14/2023 07/05/2022 06/06/2022 8 Eighteen To Twenty Week Liborio Update Ultra Sound Date Fundal Height At Umbil Quickening Date Ultra Sound Latest Weeks Gestation Final Liborio Confirmed By Final Liborio Confirmed Date Final Liborio Date Ultra Sound Latest Days Gestation 0 [email or web address] 07/05/2022 01/15/20 23 0 Pre- Flowsheet Flowsheet Date 07/05/2022 Joyce Score Blood Edema Fundus Height Fundus Units Glucose Ketones Leukocytes Nitrite Labor Signs Protein Cervic Dilation Cervic Effacement Cervic Station Type Weight in lbs Pre/Post Dialysis Refused BP Diastolic BP Location Tested BP Systolic BP Type Fetus Heart Rate Present Fetus Movement Comments Flowsheet Date 07/05/2022 Joyce Score Blood Edema Fundus Height Fundus Units Glucose Ketones Leukocytes Nitrite Labor Signs Protein Cervic Dilation Cervic Effacement Cervic Station neg none none trace Type Weight in lbs Pre/Post Dialysis Refused Weight 241.81316126719 BP Diastolic BP Location Tested BP Systolic BP Type 82 125 Fetus Heart Rate Present A 155 Fetus Movement A No Comments Clary is a 31yo G1 at 12 .3 who presents for care. She is a smoker, has anxiety and depression, and prediabetes. Was on metformin and mounjaro so she does not become diabetic. Will do an early 20w GCT. She decided not to start zoloft. her BMI is >40 and she will do testing at 34w. She will do a flu shot. We also discussed COVID vaccines, which she has not had, and she will consider. Normal NT today. PNL today, declines NIPT. Flowsheet Date 08/02/2022 Joyce Score Blood Edema Fundus Height Fundus Units Glucose Ketones Leukocytes Nitrite Labor Signs Protein Cervic Dilation Cervic Effacement Cervic Station neg none none trace Type Weight in lbs Pre/Post Dialysis Refused Weight 237.653429247714 BP Diastolic BP Location Tested BP Systolic BP Type 79 129 Fetus Heart Rate Present A 150 Fetus Movement A Yes Comments Doing well. Down to 5 cigs/d ay. Will do flu and COVID vaccines. Early GCT and anatomy US next visit. Flowsheet Date 10/20/2022 Joyce Score Blood Edema Fundus Height Fundus Units Glucose Ketones Leukocytes Nitrite Labor Signs Protein Cervic Dilation Cervic Effacement Cervic Station Type Weight in lbs Pre/Post Dialysis Refused BP Diastolic BP Location Tested BP Systolic BP Type Fetus Heart Rate Present Fetus Movement Comments Flowsheet Date 10/20/2022 Joyce Score Blood Edema Fundus Height Fundus Units Glucose Ketones Leukocytes Nitrite Labor Signs Protein Cervic Dilation Cervic Effacement Cervic Station Type Weight in lbs Pre/Post Dialysis Refused Weight 239.605744889884 BP Diastolic BP Location Tested BP Systolic BP Type 77 R arm 116 sitting Fetus Heart Rate Present Fetus Movement A Yes Comments NO COMPLAINTS, CONCERNED ABO UT SOME findings on the ultrasound. To send to [facility], hyperflexed foot. Diabetes testing today Flowsheet Date 11/16/2022 Joyce Score Blood Edema Fundus Height Fundus Units Glucose Ketones Leukocytes Nitrite Labor Signs Protein Cervic Dilation Cervic Effacement Cervic Station none 38 Type Weight in lbs Pre/Post Dialysis Refused Weight 235.358640516900 BP Diastolic BP Location Tested BP Systolic BP Type 71 111 Fetus Heart Rate Present A 125 Fetus Movement A Yes Comments Doing well. Saw [facility] re hyper flexed foot, per pt they were not concerned, awaiting report. GCT wnl, discussed TDap, will do. Ante testing to start at 34w for obesity. Precautions discussed. Flowsheet Date 11/29/2022 Joyce Score Blood Edema Fundus Height Fundus Units Glucose Ketones Leukocytes Nitrite Labor Signs Protein Cervic Dilation Cervic Effacement Cervic Station Type Weight in lbs Pre/Post Dialysis Refused BP Diastolic BP Location Tested BP Systolic BP Type Fetus Heart Rate Present Fetus Movement Comments Flowsheet Date 11/29/2022 Joyce Score Blood Edema Fundus Height Fundus Units Glucose Ketones Leukocytes Nitrite Labor Signs Protein Cervic Dilation Cervic Effacement Cervic Station Type Weight in lbs Pre/Post Dialysis Refused BP Diastolic BP Location Tested BP Systolic BP Type Fetus Heart Rate Present Fetus Movement Comments Flowsheet Date 11/29/2022 Joyce Score Blood Edema Fundus Height Fundus Units Glucose Ketones Leukocytes Nitrite Labor Signs Protein Cervic Dilation Cervic Effacement Cervic Station neg none none trace Type Weight in lbs Pre/Post Dialysis Refused Weight 239.665216070221 BP Diastolic BP Location Tested BP Systolic BP Type 78 130 Fetus Heart Rate Present Fetus Movement A Yes Comments Overall doing ok. Does have some RUQ pain that started on Monday. She did have a pop and thinks it is probably a rib. BP is a little elevated today. Denies h/a or v/d. Will send over for evaluation. Discussed PIH precautions in detail. Flowsheet Date 12/08/2022 Joyce Score Blood Edema Fundus Height Fundus Units Glucose Ketones Leukocytes Nitrite Labor Signs Protein Cervic Dilation Cervic Effacement Cervic Station Type Weight in lbs Pre/Post Dialysis Refused BP Diastolic BP Location Tested BP Systolic BP Type Fetus Heart Rate Present Fetus Movement Comments Flowsheet Date 12/08/2022 Joyce Score Blood Edema Fundus Height Fundus Units Glucose Ketones Leukocytes Nitrite Labor Signs Protein Cervic Dilation Cervic Effacement Cervic Station Type Weight in lbs Pre/Post Dialysis Refused BP Diastolic BP Location Tested BP Systolic BP Type Fetus Heart Rate Present Fetus Movement Comments Flowsheet Date 12/08/2022 Joyce Score Blood Edema Fundus Height Fundus Units Glucose Ketones Leukocytes Nitrite Labor Signs Protein Cervic Dilation Cervic Effacement Cervic Station neg none none trace Type Weight in lbs Pre/Post Dialysis Refused Weight 241.42538749854 BP Diastolic BP Location Tested BP Systolic BP Type 78 120 Fetus Heart Rate Present Fetus Movement A Yes Comments Doing well. Does still have some rib discomfort but tolerable. Encouraged pre admit. TDAP done. Plans epidural for pain management. Has asked for ground support equipment assembler delivery. testing today. Flowsheet Date 12/15/2022 Joyce Score Blood Edema Fundus Height Fundus Units Glucose Ketones Leukocytes Nitrite Labor Signs Protein Cervic Dilation Cervic Effacement Cervic Station Type Weight in lbs Pre/Post Dialysis Refused Weight 246.228671300977 BP Diastolic BP Location Tested BP Systolic BP Type 77 118 Fetus Heart Rate Present Fetus Movement Comments Flowsheet Date 12/15/2022 Joyce Score Blood Edema Fundus Height Fundus Units Glucose Ketones Leukocytes Nitrite Labor Signs Protein Cervic Dilation Cervic Effacement Cervic Station Type Weight in lbs Pre/Post Dialysis Refused BP Diastolic BP Location Tested BP Systolic BP Type Fetus Heart Rate Present Fetus Movement Comments Flowsheet Date 12/22/2022 Joyce Score Blood Edema Fundus Height Fundus Units Glucose Ketones Leukocytes Nitrite Labor Signs Protein Cervic Dilation Cervic Effacement Cervic Station Type Weight in lbs Pre/Post Dialysis Refused BP Diastolic BP Location Tested BP Systolic BP Type Fetus Heart Rate Present Fetus Movement Comments Flowsheet Date 12/22/2022 Joyce Score Blood Edema Fundus Height Fundus Units Glucose Ketones Leukocytes Nitrite Labor Signs Protein Cervic Dilation Cervic Effacement Cervic Station Type Weight in lbs Pre/Post Dialysis Refused BP Diastolic BP Location Tested BP Systolic BP Type Fetus Heart Rate Present Fetus Movement Comments Flowsheet Date 12/22/2022 Joyce Score Blood Edema Fundus Height Fundus Units Glucose Ketones Leukocytes Nitrite Labor Signs Protein Cervic Dilation Cervic Effacement Cervic Station 36 Type Weight in lbs Pre/Post Dialysis Refused Weight 248.898445389473 BP Diastolic BP Location Tested BP Systolic BP Type 77 R arm 131 sitting Fetus Heart Rate Present A 145 Fetus Movement Comments no complaints, no problems, done, the cervical exam, low very low station, very thin, not open sure she, ultrasound shows good growth, good fluid, 89th percentile estimated weight Flowsheet Date 01/27/2023 Joyce Score Blood Edema Fundus Height Fundus Units Glucose Ketones Leukocytes Nitrite Labor Signs Protein Cervic Dilation Cervic Effacement Cervic Station Type Weight in lbs Pre/Post Dialysis Refused Weight 219.690465756571 BP Diastolic BP Location Tested BP Systolic BP Type 75 107 Fetus Heart Rate Present Fetus Movement Comments Menstrual History Last Menstrual Date Menses Monthly On Bcp Conception Prior Menses Frequency Hcg Plus Date Menarche Onset Age Genetic Screening And Infection History Question Response Note Mental Retardation/Autism false Patient's Age Will Be 35 Years Or Older At Estim ated Date of Delivery false Thalassemia (Thai, Citizen Of [place], Mediterranean, Or Background): MCV < 80 false Neural Tube Defect (Meningomyelocele, Spina Bifi da, Or Anencephaly) false Congenital Heart Defect false Down Syndrome false Yang-Sachs (eg, Jehovah'S Witness, Cajun, Azeri-Kosovan) f alse Ramy Disease false Sickle Cell Disease Or Trait () false Hemophilia Or Other Blood Disorders false Muscular Dystrophy false Cystic Fibrosis false [place]'s Chorea false Intellectual Disability/Autism false If Yes, Was Person Tested For Fragile X? false Other Inherited Genetic Or Chromosomal Disorder false Maternal Metabolic Disorder (eg, Type 1 Diabetes , PKU) false Patient Or Baby's Father Had A Child With Defects Not Listed Above false Recurrent Loss, Or A Stillbirth false Medications (including Suppl ements, Vitamins, Herbs, OTC Drugs), Illicit/Recreational Drugs, Alcohol true If Yes, Agent(s) And Strength/Dosage false Any Other Genetic History false Live With Someone With TB Or Exposed To TB false Patient Or Partner Has History Of Genital Herpes false Rash Or Viral Illness Since Last Menstrual Perio d false History Of STD, Gonorrhea, Chlamydia, HPV, Syphi lis false Other Infection History false History of HIV false History of Hepatitis false Prior GBS-infected child false Hemoglobinopathy Or Carrier false Other Structural Defect false Recent Travel History Outside of Country false Delivery Information Delivery Date Delivery Type Labor Anesthesia Weeks Gestation Incision Type Labor Labor Length Hrs Delivered By Post Complications Tubal Sterilization Discharge Date Comments [facility] false Shalini Santiago CNDebbie Hemorrhage Gbs+, Maternal obesity, SROM & EBL 1,438 Discharge Information Feeding Method Contraceptive Method Maternal HG B and HCT Levels
--- OUTSIDE RECORDS SUMMARY | 2024-10-11 14:54 | XMS_ITS | Patient Health Summary ---
Author Organization [facility] [employer] Address [address] [place] [address] Care Team Providers Care Barrel Racer Name Role Phone Unavailable Primary Care Provider Unavailabl e Note from [facility] [employer] [facility],non-owned Affiliates and Associated Physician Practices is amultiple site organization consisting of ambulatory clinics and hospital sitesin [place], [place], [place] and [place]. This disclosure is being madepursuant to the Care Everywhere program and may not contain all information available regarding this patient. Last updated 18.[facility] [employer] Allergies No known active allergies Medications * [...] PM CDT Narrative 11/29/2022 4:32 PM CDT [facility] PHONE: FAX: Pat. Name: JIA PRICE ANIA Johnston. No: [id number] Study Date: 11/29/2022 3:26pm , Age: 12 1990, 32 Pregnancies: 1 Height: 64 in Weight: 234 lb LMP: Unknown GA by Base: 33w3d GABRIEL: 01/14/2023 GA by US: 34w2d GABRIEL: 01/08/2023 GA Selected: 33w3d (From Known E) GABRIEL: 01/14/2023 Referring MD: Med Castillo MD Asian Studies Professor: Sheila Silvestre RDMS CPT4: 34447 BMI: 40.16 Hist/Ind: Suspected Right Clubfoot on Outside Scan at Was Suboptimal for MFM on 11/01 Complete Anatomy Class III obesity MEASUREMENTS & AGE GROWTH EVALUATION Measurement GA Range Srce %for GA Ratios ----- ---- ------- BPD 8.6 cm 34w4d (55p9z-63z1o) Hadl BPD 75% FL/BPD 0.77 (0.71 - 0.87) HC 31.3 cm 35w1d (17h9k-27f1l) Hadl HC 54% FL/AC 0.21 (0.20 - 0.24) AC 31.9 cm 35w6d (87p7b-07v3b) Hadl AC 96% HC/AC 0.98 (0.95 - 1.13) FL 6.6 cm 33w6d (07m4f-61e3j) Hadl FL 51% CI 0.76 (0.70 - 0.86) GA for sonogram 34w2d (93e3g-17k2w) Weight Estimate: based on (BPD,HC,AC,FL) Hadlock Weight: [...] Signature> 11/29/2022 04:32pm R Jose Castillo MD [facility] ORDERABLES
[2024-10-11 15:09] LABS: Estimated CRCL calculation 108 ml/min; Estimated Glomerular Filt Rate > 60
[2024-10-11 16:18] LABS: Basophils Absolute Auto 0.1 K/mm3 (0.0-0.1); Basophils Percent Auto 0.5 % (0.2-1.2); Eosinophils Percent Auto 0.1 % (0-4.4); Hematocrit 35.5 % (37.0-47.0); Hemoglobin 11.7 g/dL (12.0-15.0); Immature Granulocyte Absolute 0.05 K/mm3 (0.00-0.031); Immature Granulocyte Percent A 0.4 % (0-0.5); Lymphocytes Absolute Auto 1.48 K/mm3 (0.9-3.2); Mean Corpuscular Hemoglobin 28.3 pg (26-34); Mean Platelet Volume 10.7 fl (7.4-10.4); Monocytes Absolute Auto 1.1 K/mm3 (0.1-0.6); Monocytes Percent Auto 8.2 % (2.6-8.5); Neutrophils Absolute Auto 10.8 K/mm3 (1.3-6.7); Neutrophils Percent Auto 79.8 % (45.5-73.1); Platelet Count Result 299 k/mm3 (150-375); Red Blood Count 4.13 M/mm3 (4.2-5.4); Red Cell Distribution Width 13.3 % (11.5-14.5); White Blood Count 13.5 K/mm3 (4.5-10.0)
[2024-10-11 16:34] LABS: Alanine Aminotransferase 25 U/L (6-35); Albumin Level 3.7 g/dL (3.5-5.1); Alkaline Phosphatase 78 U/L (38-126); Anion Gap 8 mmol/L (4-12); Aspartate Amino Transferase 33 U/L (14-36); Bilirubin,Total 0.5 mg/dL (0.2-1.3); Blood Urea Nitrogen 6 mg/dL (7-17); Calcium 8.7 mg/dL (8.4-10.2); Carbon Dioxide 29 mmol/L (22-30); Chloride 100 mmol/L (98-107); Estimated CRCL calculation 120 ml/min; Estimated Glomerular Filt Rate > 60; Glucose 103 mg/dL (65-110); Potassium 4.1 mmol/L (3.4-5.0); Sodium 137 mmol/L (137-145)
[2024-10-11 16:36] LABS: Monoscreen Negative (Negative); Negative Monotest Control Negative (Negative); Positive Monotest Control Positive (Positive)
[2024-10-11 16:43] LABS: Strep Group A RT-PCR NOT DETECTED (Negative)
[2024-10-11 16:54] LABS: Influenza A QL RT-PCR Positive (Negative); Influenza B QL RT-PCR Negative (Negative); RSV RNA, RT-PCR Negative (Negative); SARS-CoV-2 RNA PCR Negative (Negative)
[2024-10-11] MEDS: dexAMETHasone SOD PHOS INJ 10 MG/ML 1 ML VIAL IV PUSH (17:03)
[2024-10-15 22:22] LABS: Mumps Virus IgM Antibody <1:20 titer
== END 2024-10-11 17:45 | disposition home or self-care (01) ==
PROVIDERS: Physician Assistant; Emergency Provider Student in an Organized Health Care Education/Training Program
DX: J10.1 Influenza due to other identified influenza virus with other respiratory manifestations (principal); K11.21 Acute sialoadenitis; M26.69 Other specified disorders of temporomandibular joint; H93.8X2 Other specified disorders of left ear; Z20.822 Contact with and (suspected) exposure to COVID-19; F17.210 Nicotine dependence, cigarettes, uncomplicated
CPT/HCPCS: 36415; 70491; 80053; 85025; 86308; 86735; 87637; 87651; 96374; 99284; J1100; Q9967